=== PATIENT | female | born 2000 | race Caucasian/White ===

== ENCOUNTER 2023-09-19 08:13 | Outpatient (AMB) | payer OTHER, SELFPAY ==
--- NOTE | 2023-09-19 08:15 | AM.OFFWIN_ITS ---
Intake Vital Signs 09/19/23 08:21 Height 5 ft 5 in Weight 252 lb BMI 41.9 BP 118/60 Blood Pressure Location Rt brachial Position Sitting Respiration 13 Pulse 115 H Pulse Source Pulse Oximeter Pulse Oximetry (%) 96 Oxygen Delivery Method Room Air Intake Visit Reasons: ? sinus infection Intake Note: Patient reports she has had sinusitis x4 weeks. Tested at home for covid and result was negative. Patient reports she had conjuctivitis- cleared with OTC eye drops. Patient reports she uses Azelastine nasal spray (her moms supply) and it helped mildly. Patient Tobacco Use Status: Never used Tobacco Case Manager Required: No Accompanied by: Self / Same As Patient Allergies No Known Allergies [No Known Allergies*] Allergy (Unverified 09/19/23 09:00) Medication List - Last Reconciled 09/19/23 by Yanira Perez, DESIGN ENGINEERING SPECIALIST-BC clonazepam 0.25 mg PO BID PRN escitalopram oxalate 20 mg PO DAILY methylphenidate HCl (Ritalin) 20 mg PO BID norethindrone ac-eth estradiol 1.5-30 mg-mcg (Jo) 1 tab PO DAILY Do you need a note to return to daycare/school/sports/work: Yes HPI HPI Comments History of Present Illness Details Here today with c/o URI sx for 4 weeks. Went to [facility] 2 weeks but not tx with AB at that time. Supportive care only. Did tx pink eye at home with OTC remedy. Today, has lots of nasal congestion, pressure, drainage, + dental pain. Denies fever, chills. UTD on vaccines. Review of Systems Const All systems reviewed & are unremarkable except as noted in HPI and below Physical Exam Vital Signs: Last Vital Signs Pulse 115 H 09/19/23 08:21 Resp 13 09/19/23 08:21 BP 118/60 09/19/23 08:21 Pulse Ox 96 09/19/23 08:21 Oxygen Delivery Method Room Air 09/19/23 08:21 BMI result Body Mass Index 41.9 Const Other: awake, alert, NAD sclera/conjunctiva clear bilat TM intact, + effusions bilat Nares with mucopurulent discharge, turbinates pale and edematous, + frontal and maxillary sinus tenderness w/ palp bilat worse on L RRR P90 LS CTAB Assessment & Plan Assessment & Plan (1) Sinusitis, acute: Code(s): J01.90 - Acute sinusitis, unspecified Qualifiers: Sinusitis location: pansinusitis Recurrence: non-recurrent Qualified Code(s): J01.40 - Acute pansinusitis, unspecified Plan: . Medications: New albuterol sulfate 90 mcg/actuation 2 puffs inhalation Q4-6H 30 days PRN 8.5 grams 0RF shortness of breath or wheezing amoxicillin-pot clavulanate 875-125 mg 1 tab PO BID 7 days 14 tabs 0RF Patient Instructions: take ab as directed w/ food no nasal spray other than saline or flonase avoid decongestants edu on control and ab & reasons to RTO Coding Level of Care Code Est Pt Level 3 (81644) Diagnoses Acute non-recurrent pansinusitis J01.40 Sinusitis location: pansinusitis Recurrence: non-recurrent
[2023-09-19 08:21] VITALS: BP 118/60; PULSE 115; RESP 13; O2SAT 96; BMI 41.9
== END 2023-09-19 09:28 | disposition home or self-care (01) ==
PROVIDERS: Visit Provider Nurse Practitioner Family
DX: J01.40 Acute pansinusitis, unspecified (principal)
CPT/HCPCS: 99213

== ENCOUNTER 2023-11-02 10:44 | Outpatient (AMB) | payer OTHER, SELFPAY ==
[2023-11-02 10:47] VITALS: BP 114/68; PULSE 104; RESP 12; O2SAT 98; BMI 42.6
--- NOTE | 2023-11-02 10:47 | MHC.PC.OV ---
Vital Signs 11/02/23 10:47 Height 5 ft 5 in Weight 256 lb BMI 42.6 BP 114/68 Blood Pressure Location Lt brachial Position Sitting Respiration 12 Pulse 104 H Pulse Source Pulse Oximeter Pulse Oximetry (%) 98 Oxygen Delivery Method Room Air Intake Visit Reasons: est care Intake Note: Patient is here today to establish care and she would like to discuss her weight concern adn struggles. Plant Operator Control Room Operator Required: No Accompanied by: Self / Same As Patient Allergies No Known Allergies [No Known Allergies*] Allergy (Verified 11/02/23 11:14) Medication List - Last Reconciled 11/02/23 by Yanira Perez, [facility]- albuterol sulfate 90 mcg/actuation 2 puffs inhalation Q4-6H PRN 30 days buspirone 10 mg PO BID clonazepam 0.25 mg PO BID PRN escitalopram oxalate 20 mg PO DAILY methylphenidate HCl (Ritalin) 20 mg PO BID norethindrone-ethin estradiol 1-35 mg-mcg (Nortrel) 1 tab PO DAILY Tobacco use date assessed: 11/02/23 Dental Screening Dental Screen Date: 11/02/23 Did you have a dental visit in the last 12 months?: Yes Did you have a dental problem in the last 6 months where you did not have access to dental care?: No Was dental information given to patient?: Patient has dentist HPI HPI Comments History of Present Illness Details 23-year-old female with obesity, GERD, MDD, mild and intermittent asthma, ADD here today to establish care. No previous medical records available. Was active w/ [facility] until age 21. Will get records At [facility] Med - no records worth getting Specialists Psychiatry - Lauren Brandt HAND BOX FOLDER - Yanira Moreno [facility] Health maintenance Pap smear UTD 2022 vaccines UTD Dentist reports routine appointments Eyes no issues has routine eye exams Skin offers no complaints Social Currently going to school for her bachelor's in science. Wants to become a nurse practitioner. She is at [employer]. She drives and wears a seat belt. Family history Mom with adrenal insufficiency Sister with bipolar Here today for CPE Feeling pretty well. Trying to lose wt 6 months. On calorie deficit 1800cal/day. Working out 5x/week. Not seeing any results. Admits having to increase estrogen in OCP recently due to breakthrough bleeding Wonders if meds contribute. Although admits to wt struggles in her past. . Asked HAND BOX FOLDER about PCOS. Labs done and WNL per her reports. These are not available to me. She also reports a sudden onset of stretch kennedy on her abdomen as well as her arms that seem to appear ?overnight ?fairly recently. [facility] Medical History Depression Anxiety Asthma Surgical History No pertinent past surgical history Family History Mother Asthma Father Psychiatric disorder Substance use disorder Maternal Grandmother Diabetes High cholesterol Paternal Grandmother High cholesterol Maternal Grandfather High cholesterol Cardiovascular disease Paternal Grandfather High cholesterol Psychiatric disorder Substance use disorder Sister Psychiatric disorder Social History (Updated 11/02/23 @ 11:11 by July Melendez CMA) Household Members: Significant Other Housing: House Are you a primary career and transition teacher to a significant other at home: No Do you presently have visiting nurse or other home services: No 75 years or older and lives alone: No Alcohol intake: current Alcohol intake frequency: holidays/special occasions only Patient Tobacco Use Status: Never used Tobacco e-Cigarette/Vaping Use: Never Used service: No Current occupational status: employed Current occupation: [employer] Current occupational exposures/hazards: No Sexual orientation: Straight/Heterosexual Gender identity: Female Cognitive needs: No Hearing needs: No Vision needs: No Questionnaire PHQ-9 Over the last 2 weeks, how often have you been bothered by any of the following problems? 1. Little interest or pleasure in doing things: not at all 2. Feeling down, depressed, or hopeless: not at all 3. Trouble falling or staying asleep, or sleeping too much: several days 4. Feeling tired or having little energy: not at all 5. Poor appetite or overeating: not at all 6. Feeling bad about yourself - or that you are a failure or have let yourself or your family down: not at all 7. Trouble concentrating on things, such as reading the newspaper or watching television: not at all 8. Moving or speaking so slowly that other people could have noticed. Or the opposite - being so fidgety or restless that you have been moving around a lot more than usual: not at all 9. Thoughts that you would be better off or of hurting yourself in some way: not at all Total score: 1 Depression Screening Interpretation: Negative Depression Screening Done: Yes 68813 - PHQ-9 Billing: Yes Source: Developed by Drs. Chago Vicente, Mi Avalos, Awais Toledo and colleagues, with an educational magdi from [employer]. Thrive Questionnaire Date Thrive assessed: 11/02/23 I am a: Patient What is your living situation today?: I have a steady place to live Within the past 12 months, did the food you bought not last and you didn't have the money to get more?: Never true Within the past 12 months, did you worry whether your food would run out before you got money to buy more?: Never true Do you have trouble paying for medicines?: No Do you have trouble getting transportation to medical appointments?: No Do you have trouble paying your heating and electricity bill?: No Do you have trouble taking care of your child, family member or friend?: No Do you have trouble with day-to-day activities such as bathing, preparing meals, shopping, managing finances, etc.?: No Are you currently unemployed and looking for a job?: No Are you interested in more education?: No Please select the resources that you would like help with: None Currently or been in a relationship where the following occur: no concerns reported THRIVE Score: 0 AUDIT C Alcohol Use Questionnaire (AUDIT-C) 1. How often do you have a drink containing alcohol?: Never 3. How often do you have six or more drinks on one occasion?: Never Total Score: 0 WILMAR-7 AMB Questionnaire WILMAR-7 Date WILMAR - 7 assessed: 11/02/23 Feeling nervous, anxious, or on edge: 1 = Several days Not being able to stop or control worryin = Not at all Worrying too much about different things: 0 = Not at all Trouble relaxin = Not at all Being so restless that it is hard to sit still: 0 = Not at all Becoming easily annoyed or irritable: 0 = Not at all Feeling afraid as if something awful might happen: 0 = Not at all Total WILMAR-7 score (0-4 normal; 5-9 mild; 10-14 moderate; 15-21 severe): 1 Source: Developed by Drs. Chago Vicente, Mi Avalos, Awais Toledo and colleagues, with an educational magdi from [employer]. WILMAR-7 Assessment Billing WILMAR-7 Assessment Tool: WILMAR-7 Assessment 73484 Review of Systems Const Details: Constitutional: Denies fever. Skin: Denies rash. Eye: Denies eye pain. ENMT: Denies sore throat and nasal congestion. Respiratory: Denies shortness of breath and cough. Gastrointestinal: Denies nausea, vomiting or abdominal pain. Cardiovascular: Denies chest pain and syncope. Genitourinary: Denies dysuria. Musculoskeletal: Denies back pain and extremity pain. Neurologic: Denies headaches, confusion, and weakness. Psychiatric: Denies suicidal thoughts and substance abuse. Allergy/ Immunologic: Denies impaired immunity. Physical exam (Primary Care) Vital Signs: Last Vital Signs Pulse 104 H 11/02/23 10:47 Resp 12 11/02/23 10:47 BP 114/68 11/02/23 10:47 Pulse Ox 98 11/02/23 10:47 Oxygen Delivery Method Room Air 11/02/23 10:47 BMI result Body Mass Index 42.6 BMI Assessment/Plan discussion: High BMI High, discussed plan: lifestyle Tobacco/Smoking Status: Tobacco use Status Tobacco use date assessed 11/02/23 11/02/23 10:56 Patient Tobacco Use Status Never used Tobacco 11/02/23 11:11 e-Cigarette/Vaping Use Never Used 11/02/23 11:11 PHQ-9: PHQ-9 Score PHQ-9: Total score 1 11/02/23 11:06 Depression Screening Interpretation: Negative Thrive Assessment: Date of Thrive Assessment Date Thrive assessed 11/02/23 11/02/23 11:06 Currently or been in a relationship where the following occur: no concerns reported Const Other: General: Well developed, well nourished, in no acute distress. Appears stated age. Bowles face, obese Head: Normocephalic, atraumatic. Eyes: Pupils are equal, round and reactive to light and accommodation. Conjunctivae are clear. Vision grossly normal. Ears: TMs clear AU, EACS WNL Nose: Patent, without discharge. Mouth: There are no ulcers or lesions noted. No inflammation, no post nasal drip, no plaques nor exudates. Neck: Supple, no adenopathy or thyromegaly. Lungs: Clear to auscultation bilaterally. No rales, rhonchi or wheeze noted. Good air flow in all jarvis. Heart: Regular rate and rhythm. No murmurs, click, rubs or gallops are noted. Abdomen: Bowel sounds present in all quadrants. The abdomen is soft, nontender, with no masses or organomegaly noted. No hernias are noted. Musculoskeletal: Joints are nontender, without swelling, redness, or effusions. Range of motion is observed to be normal. Pulses: Peripheral pulses are equal and palpable bilaterally. Extremities: No clubbing, cyanosis nor edema is noted. Neurologic: Gait and station normal. Cranial Nerves 2-12 intact. Motor strength grossly symmetrical and intact. No sensory loss. Balance normal. Skin: No rashes, ulcers, or lesions noted. Turgor is good. Skin color is good. Hair and nails are without abnormalities. Wide purple striae of abdominal wall and upper arms Psych: Normal eye contact, affect and mood appropriate, and normal interactions. Patient is alert and appropriate to context. Assessment and Plan Assessment & Plan (1) Morbid obesity with BMI of 40.0-44.9, adult: Comment: Difficulty losing weight despite efforts. Given the exam findings today which is concerning for cushingoid syndrome the decision was made to refer to endocrinology for further evaluation and treatment. I have encouraged her to continue her efforts at eating a clean diet and exercising 5 times per week. Code(s): E66.01 - Morbid (severe) obesity due to excess calories; Z68.41 - Body mass index [BMI] 40.0-44.9, adult (2) Mild intermittent asthma in adult without complication: Comment: Controlled on p.r.n. Marry. Up-to-date on vaccinations Code(s): J45.20 - Mild intermittent asthma, uncomplicated (3) MDD (major depressive disorder), recurrent episode: Comment: Active with outside psychiatry Lauren Bustamante. Managed on buspirone escitalopram and clonazepam. Code(s): F33.9 - Major depressive disorder, recurrent, unspecified Qualifiers: Major depression episode severity: mild Qualified Code(s): F33.0 - Major depressive disorder, recurrent, mild (4) WILMAR (generalized anxiety disorder): Comment: Active with outside psychiatry Lauren [place]. Managed on buspirone escitalopram and clonazepam. Code(s): F41.1 - Generalized anxiety disorder (5) ADD (attention deficit disorder): Comment: On Ritalin as managed by her outside prescriber Lauren Rikki Code(s): F98.8 - Other specified behavioral and emotional disorders with onset usually occurring in childhood and adolescence Qualifiers: Attention deficit-hyperactivity disorder type: predominantly inattentive Hyperactivity presence: present Qualified Code(s): F90.0 - Attention-deficit hyperactivity disorder, predominantly inattentive type (6) Iatrogenic cushingoid features: Comment: Noted on physical exam today. Associated with symptoms of menstrual irregularities, obesity, inability to lose weight and a bowles face. She reports that she has already had a PCOS workup done in the past by dental assisting instructor. I will request a copy of these for review. I have placed a referral to endocrinology for further evaluation and treatment. And I have ordered some tests to start. Code(s): E24.2 - Drug-induced [place]'s syndrome (7) Physical exam, annual: Code(s): Z00.00 - Encounter for general adult medical examination without abnormal findings Plan This note is constructed using voice recognition software. While every effort has been made to ensure accuracy in gunstock spray unit adjuster, still errors may have been included Sometimes, these errors may affect the content or meaning of the given sentence . Total time spent caring for the patient today was 75 minutes. This includes time spent before the visit reviewing the chart, time spent during the visit, and time spent after the visit on documentation Unfortunately the findings of the abdominal striae and the conversation related to the cushings provoked anxiety in the patient. She began crying. Lots of time needed to be spent with her explaining the process the differentials and reassuring her. I have asked for her to come back again in a couple of weeks to review her workup to date and check in Orders: Orders Cortisol, Free 24Hr Urine Today E24.2 - Drug-induced [place]'s syndrome, E66.01 - Morbid (severe) obesity due to excess calories, Z68.41 - Body mass index [BMI] 40.0-44.9, adult Hemoglobin A1c Today E24.2 - Drug-induced Lynette's syndrome, E66.01 - Morbid (severe) obesity due to excess calories, Z68.41 - Body mass index [BMI] 40.0-44.9, adult Saliva Cortisol Today E24.2 - Drug-induced Lynette's syndrome, E66.01 - Morbid (severe) obesity due to excess calories, Z68.41 - Body mass index [BMI] 40.0-44.9, adult DHEA Sulfate Today E24.2 - Drug-induced [place]'s syndrome, E66.01 - Morbid (severe) obesity due to excess calories, Z68.41 - Body mass index [BMI] 40.0-44.9, adult Referrals Endocrinology Referral E24.2 - Drug-induced Lynette's syndrome, E66.01 - Morbid (severe) obesity due to excess calories, Z68.41 - Body mass index [BMI] 40.0-44.9, adult Metabolic Clinic Referral E66.01 - Morbid (severe) obesity due to excess calories, Z68.41 - Body mass index [BMI] 40.0-44.9, adult Patient Instructions: Health screenings for women ages 18 to 39 You should visit your health care provider from time to time, even if you are healthy. The purpose of these visits is to: Screen for medical issues Assess your risk for future medical problems Encourage a healthy lifestyle Update vaccinations and other preventive care services Help you get to know your provider in case of an illness Information Even if you feel fine, you should still see your provider for regular checkups. These visits can help you avoid problems in the future. For example, the only way to find out if you have high blood pressure is to have it checked regularly. High blood sugar and high cholesterol levels also may not have any symptoms in the early stages. A simple blood test can check for these conditions. There are specific times when you should see your provider or receive specific health screenings. The [place] Preventive Services Task Force publishes a list of recommended screenings. Below are screening guidelines for women ages 18 to 39. BLOOD PRESSURE SCREENING Your blood pressure should be checked at least once every 3 to 5 years if: Your blood pressure is in the normal range (top number less than 120 mm Hg and bottom number less than 80 mm Hg) You don't have risk factors for high blood pressure Ask your provider if you need your blood pressure checked more often if: The top number is 120 to 129 mm Hg or the bottom number is 70 to 79 mm Hg You have diabetes, heart disease, kidney problems, are overweight, or have certain other health conditions You have a first-degree relative with high blood pressure You are Black You had high blood pressure during a If the top number is 130 mm Hg or greater or the bottom number is 80 mm Hg or greater, this is considered stage 1 hypertension. Schedule an appointment with your provider to learn how you can reduce your blood pressure. Watch for blood pressure screenings in your area. Ask your provider if you can stop in to have your blood pressure checked. BREAST CANCER SCREENING Experts do not agree about the benefits of breast self-exams in finding breast cancer or saving lives. Talk to your provider about what is best for you. A screening mammogram is not recommended for most women under age 40. Your provider may discuss and recommend mammograms, MRI scans, or ultrasounds if you have an increased risk for breast cancer, such as: A mother or sister who had breast cancer at a young age (most often starting screening earlier than the age the close relative was diagnosed) You carry a high-risk genetic marker CERVICAL CANCER SCREENING Cervical cancer screening should start at age 21 years unless your provider advises otherwise. After the first test: Women ages 21 through 29 should have a Pap test every 3 years. Exoprts do not agree on whether HPV testing is recommended for this age group. Women ages 30 through 65 should be screened with either a Pap test every 3 years or the HPV test every 5 years or both tests every 5 years (called cotesting ). Women who have been treated for precancer (cervical dysplasia) should continue to have Pap tests for 20 years after treatment or until age 65, whichever is longer. If you have had your uterus and cervix removed (total hysterectomy), and you have not been diagnosed with cervical cancer or precancer (high grade cervical neoplasia), you do not need cervical cancer screening. CHOLESTEROL SCREENING Cholesterol screening should begin at: Age 45 for women with no known risk factors for coronary heart disease Age 20 for women with known risk factors for coronary heart disease Repeat cholesterol screening should take place: Every 5 years for women with normal cholesterol levels More often if changes occur in lifestyle (including weight gain and diet) More often if you have diabetes, heart disease, kidney problems, or certain other conditions DIABETES SCREENING You should be screened for diabetes starting at age 35 and then repeated every 3 years if you have no risk factors for diabetes. Screening may need to start earlier and be repeated more often if you have other risk factors for diabetes, such as: You have a first degree relative with diabetes. You are overweight or have obesity. You have high blood pressure, prediabetes, or a history of heart disease. Screening for diabetes should be done if you are planning to become and you are overweight and have other risk factors such as high blood pressure. DENTAL EXAM Go to the dentist once or twice every year for an exam and cleaning. Your dentist will evaluate if you need more frequent visits. EYE EXAM Have an eye exam every 5 to 10 years before age 40. If you have vision problems, have an eye exam every 2 years or more often if recommended by your provider. You should have an eye exam that includes an examination of your retina (back of your eye) at least every year if you have diabetes. IMMUNIZATIONS Commonly needed vaccines include: Flu shot: get one every year. COVID-19 vaccine: ask your provider what is best for you. Tetanus-diphtheria and acellular pertussis (Tdap) vaccine: have one at or after age 19 as one of your tetanus-diphtheria vaccines if you did not receive it as an adolescent. Tetanus-diphtheria: have a booster (or Tdap) every 10 years. Varicella vaccine: receive 2 doses if you never had chickenpox or the varicella vaccine. Hepatitis B vaccine: receive 2, 3, or 4 doses, depending on your exact circumstances. Measles, mumps, and rubella (MMR) vaccine: receive 1 to 2 doses if you are not already immune to MMR. Your provider can tell you if you are immune. Ask your provider about the human papillomavirus (HPV) vaccine if: You have not received the HPV vaccine in the past You have not completed the full vaccine series (you should catch up on this shot) Ask your provider if you should receive other immunizations if you have certain health problems that increase your risk for some diseases such as pneumonia. INFECTIOUS DISEASE SCREENING Women who are sexually active should be screened for chlamydia and gonorrhea up until age 25. Women 25 years and older should be screened for chlamydia and gonorrhea if at high risk. Screening for hepatitis C: All adults ages 18 to 79 should get a one-time test for hepatitis C. people should be screened at every . Screening for human immunodeficiency virus (HIV): All people ages 15 to 65 should get a one-time test for HIV. Depending on your lifestyle and medical history, you may also need to be screened for infections such as syphilis and HIV, as well as other infections. PHYSICAL EXAM All adults should visit their provider from time to time, even if they are healthy. The purpose of these visits is to: Screen for disease Assess your risk of future medical problems Encourage a healthy lifestyle Update your vaccinations and other preventive care services Maintain a relationship with a provider in case of an illness Your height, weight, and BMI should be checked at every exam. During your exam, your provider may ask you about: Depression and anxiety Diet and exercise Alcohol and tobacco use Safety issues, such as using seat belts, smoke detectors, and intimate partner violence Your medicines and risk for interactions SKIN SELF-EXAM Your provider may check your skin for signs of skin cancer, especially if you're at high risk, such as if you: Have had skin cancer before Have close relatives with skin cancer Have a weakened immune system OTHER SCREENING Talk with your provider about colon cancer screening if you have a strong family history of colon cancer or polyps, or if you have had inflammatory bowel disease or polyps yourself. Routine bone density screening of women under 40 is not recommended. Coding Level of Care Code Est Pt Level 3 (95574) Est Pt Prev Care 18-39y(32337) Diagnoses Morbid obesity with BMI of 40.0-44.9, adult E66.01; Z68.41 Mild intermittent asthma in adult without complication J45.20 Mild episode of recurrent major depressive disorder F33.0 Major depression episode severity: mild WILMAR (generalized anxiety disorder) F41.1 Attention deficit hyperactivity disorder (ADHD), predominantly inattentive type F90.0 Attention deficit-hyperactivity disorder type: predominantly inattentive Hyperactivity presence: present Iatrogenic cushingoid features E24.2 Physical exam, annual Z00.00 Additional Codes WILMAR-7 Assessment Billing - WILMAR-7 Assessment Tool: WILMAR-7 Assessment [id number] ([id number])
== END 2023-11-02 12:20 | disposition home or self-care (01) ==
PROVIDERS: PCP Nurse Practitioner Family; Visit Provider Nurse Practitioner Family
DX: Z00.00 Encounter for general adult medical examination without abnormal findings (principal); E66.01 Morbid (severe) obesity due to excess calories; Z68.41 Body mass index [BMI] 40.0-44.9, adult; E24.2 Drug-induced Cushing's syndrome; F33.0 Major depressive disorder, recurrent, mild; J45.20 Mild intermittent asthma, uncomplicated; F41.1 Generalized anxiety disorder; F90.0 Attention-deficit hyperactivity disorder, predominantly inattentive type
CPT/HCPCS: 99213; 99395

== ENCOUNTER 2023-11-02 12:05 | Outpatient (REF) | payer OTHER, SELFPAY ==
[2023-11-02 14:43] LABS: Estimated Average Glucose 94 mg/dL; Hemoglobin A1c % 4.9 % (<6.0)
[2023-11-03 09:08] LABS: DHEA Sulfate 202 mcg/dL (44-286)
== END 2023-11-02 12:06 | disposition home or self-care (01) ==
LOC: HO.WFDLDS 12:05
PROVIDERS: Visit Provider Nurse Practitioner Family
DX: E24.2 Drug-induced Cushing's syndrome (principal); E66.01 Morbid (severe) obesity due to excess calories; Z68.41 Body mass index [BMI] 40.0-44.9, adult
CPT/HCPCS: 36415; 82627; 83036

== ENCOUNTER 2023-11-05 11:55 | Outpatient (REF) | payer OTHER, SELFPAY ==
[2023-11-18 21:58] LABS: Creatinine, 24 Hr Urine 1.39 g/24 h (0.50-2.15); Total Volume, 24 Hr Urine 1525
== END 2023-11-05 11:56 | disposition home or self-care (01) ==
LOC: HO.LNP 11:55
PROVIDERS: Visit Provider Nurse Practitioner Family
DX: E24.2 Drug-induced Cushing's syndrome (principal); E66.01 Morbid (severe) obesity due to excess calories; Z68.41 Body mass index [BMI] 40.0-44.9, adult
CPT/HCPCS: 82530

== ENCOUNTER 2023-11-05 18:11 | Outpatient (REF) | payer OTHER, SELFPAY ==
[2023-11-16 22:54] LABS: Saliva Cortisol 0.07 mcg/dL
== END 2023-11-05 18:12 | disposition home or self-care (01) ==
LOC: HO.LNP 18:11
PROVIDERS: Visit Provider Nurse Practitioner Family
DX: E24.2 Drug-induced Cushing's syndrome (principal); E66.01 Morbid (severe) obesity due to excess calories; Z68.41 Body mass index [BMI] 40.0-44.9, adult
CPT/HCPCS: 82530

== ENCOUNTER 2024-04-03 10:18 | Outpatient (AMB) | payer OTHER, SELFPAY ==
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
[2024-04-03 10:34] VITALS: BP 124/68; PULSE 104; RESP 16; TEMP 36.6; O2SAT 98; BMI 41.1
== END 2024-04-03 11:08 | disposition home or self-care (01) ==
PROVIDERS: PCP Nurse Practitioner Family; Visit Provider Nurse Practitioner Family
DX: S13.4XXA Sprain of ligaments of cervical spine, initial encounter (principal); S29.012A Strain of muscle and tendon of back wall of thorax, initial encounter; S06.0X0A Concussion without loss of consciousness, initial encounter; V49.50XA Passenger injured in collision with unspecified motor vehicles in traffic accident, initial encounter
CPT/HCPCS: 99215

== ENCOUNTER 2024-05-07 15:32 | Outpatient (AMB) | payer OTHER, SELFPAY ==
--- NOTE | 2024-05-07 15:33 | A.OFFPC_ITS ---
Intake Visit Reasons: Covid positive/ Asthma Intake Note: Patient is here to follow up on Covid positive 05/06/24, Flu like symptoms, headache, nausea, shortness of breath, chills, extreme fatigue, congestion. OTC not helping. Health Services Rn Required: No Seam Sewer: Not Required per policy Accompanied by: Self / Same As Patient Allergies No Known Allergies [No Known Allergies*] Allergy (Verified 05/07/24 15:47) Medication List - Last Reconciled 05/07/24 by Yanira Perez, [facility] albuterol sulfate 2.5 mg (3 mL) inhalation Q4-6H PRN albuterol sulfate 90 mcg/actuation 2 puffs inhalation Q4-6H PRN 30 days buspirone 10 mg PO BID cetirizine (All Day Allergy (cetirizine)) 10 mg PO DAILY clonazepam 0.25 mg PO BID PRN compressor, for nebulizer As directed escitalopram oxalate 20 mg PO DAILY methylphenidate HCl (Ritalin) 20 mg PO BID nebulizer accessories (Adult Aerosol Mask) As directed Tobacco use date assessed: 04/03/24 Dental Screening Dental Screen Date: 04/03/24 HPI HPI Comments History of Present Illness Details 24-year-old female with obesity, GERD, M DD, mild and intermittent asthma, ADD Telehealth visit today for COVID. Attempted to call her at 1538. No answer. LMOM that I would try her back. Second call at 1545 Tested positive yesterday, Sx started about 3 days ago Sx include headache, extreme fatigue, congestion, chills, feels flu like sx. did feel SOB but using neb with + relief. Mom + on Sunday. Denies cough, fever, wheezing. Using mucinex for congestion. No APAP or NSAIDs. wonders about taking paxlovid. She is able to talk in complete sentences, no wheezing, shortness to breath noted. Unable to take vital signs of the time of the visit. Discussed with her the use of Paxlovid along with Co administration of her medications as below. Coadministration has not been studied. Buspirone is metabolized by CY. Nirmatrelvir/ritonavir strongly inhibits CY. Coadministration with itraconazole (200 mg for 4 days), another strong CY inhibitor, increased buspirone AUC by 19-fold and requires a significant reduction in buspirone dose (i.e., 2.5 mg once daily). A similar interaction is expected with nirmatrelvir/ritonavir. Pause buspirone and restart 3 days after completing nirmatrelvir/ritonavir treatment given that CY inhibition takes several days to resolve. Alternatively, use buspirone at a low dose such as 2.5mg once daily. Coadministration is contraindicated. Increased plasma concentrations of clonazepam can increase risk of extreme sedation and respiratory depression. Ritonavir coadministration is likely to result in increased plasma concentrations of clonazepam. Paxlovid Summary of Product Characteristics, [employer], June 2022. Coadministration may increase clonazepam concentrations. A dose decrease may be needed for clonazepam when co-administered with Paxlovid and clinical monitoring is recommended. After discussion she reports that she is having an uptic in her anxiety and does not think that she can be without these medications. Her last dose of clonazepam was today. [place] decision-making to not prescribe Paxlovid at this time. Rather continue supportive care, liberal use of albuterol nebulizer, [id number] NSAIDs or acetaminophen for body aches and fever along with Mucinex to help with congestion. Advised that if she does develop worsening symptoms, wheezing that she should put a mask on and come to the office for an evaluation. Otherwise she should recover without incident. Recommend to follow the current CDC guidelines. This note is constructed using voice recognition software. While every effort has been made to ensure accuracy in retrimmer, still errors may have been included Sometimes, these errors may affect the content or meaning of the given sentence . [facility] Medical History Depression Anxiety Asthma Surgical History No pertinent past surgical history Family History Mother Asthma Father Psychiatric disorder Substance use disorder Maternal Grandmother Diabetes High cholesterol Paternal Grandmother High cholesterol Maternal Grandfather High cholesterol Cardiovascular disease Paternal Grandfather High cholesterol Psychiatric disorder Substance use disorder Sister Psychiatric disorder Social History (Updated 11/02/23 @ 11:11 by July Melendez CMA) Household Members: Significant Other Housing: House Are you a primary direct care counselor to a significant other at home: No Do you presently have visiting nurse or other home services: No 75 years or older and lives alone: No Alcohol intake: current Alcohol intake frequency: holidays/special occasions only Patient Tobacco Use Status: Never used Tobacco e-Cigarette/Vaping Use: Never Used Second Hand Smoke Exposure: No service: No Current occupational status: employed Current occupation: [employer] Current occupational exposures/hazards: No Sexual orientation: Straight/Heterosexual Gender identity: Female Cognitive needs: No Hearing needs: No Vision needs: No Questionnaire Thrive Questionnaire Date Thrive assessed: 11/02/23 WILMAR-7 AMB Questionnaire WILMAR-7 Date WILMAR - 7 assessed: 11/02/23 Source: Developed by Drs. Chago Vicente, Mi Avalos, Awais Toledo and colleagues, with an educational magdi from [employer]. Physical exam (Primary Care) Tobacco/Smoking Status: Tobacco use Status Tobacco use date assessed 04/03/24 04/03/24 10:39 Patient Tobacco Use Status Never used Tobacco 04/03/24 10:39 e-Cigarette/Vaping Use Never Used 04/03/24 10:39 Thrive Assessment: Date of Thrive Assessment Date Thrive assessed 11/02/23 04/03/24 10:39 Telehealth Telehealth Telehealth Platform: Telephone Location of provider rendering services: practice address Location of patient: address on file Patient Identification confirmed using: Name, : Yes Telehealth method: voice only Patient verbally consented to treatment: Yes Patient verbally consented to billing insurance company: Yes Patient informed of any privacy concerns related to visit: Yes Minutes spent on Phone/Video with Pt.: 12 Assessment and Plan Assessment & Plan (1) COVID-19: Code(s): U07.1 - COVID-19 (2) Mild intermittent asthma in adult without complication: Comment: Controlled on p.r.n. Marry. Up-to-date on vaccinations Code(s): J45.20 - Mild intermittent asthma, uncomplicated Coding Level of Care Code Tele Est Pt Level 2 (40726) Diagnoses COVID-19 U07.1 Mild intermittent asthma in adult without complication J45.20
== END 2024-05-07 15:55 | disposition home or self-care (01) ==
LOC: HO.HMGFM 15:32
PROVIDERS: PCP Nurse Practitioner Family; Visit Provider Nurse Practitioner Family
DX: U07.1 COVID-19 (principal); J45.20 Mild intermittent asthma, uncomplicated
CPT/HCPCS: 99212

== ENCOUNTER 2024-09-24 13:34 | Outpatient (AMB) | payer OTHER, SELFPAY ==
--- NOTE | 2024-09-24 13:36 | MHC.PC.OV ---
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 Intake Note: Patient is here for a referral to bulb grader Pastry Wrapper Required: No Allergies No Known Allergies [No Known Allergies*] Allergy (Verified 09/24/24 13:59) Medication List - Last Reconciled 09/24/24 by Yanira Perez, [facility]- albuterol sulfate 2.5 mg (3 mL) inhalation Q4-6H PRN albuterol sulfate 90 mcg/actuation 2 puffs inhalation Q4-6H PRN 30 days buspirone 15 mg PO DAILY cetirizine (All Day Allergy (cetirizine)) 10 mg PO DAILY clonazepam 0.25 mg PO BID PRN clonazepam 1 mg PO BID PRN compressor, for nebulizer As directed escitalopram oxalate 20 mg PO DAILY meloxicam 15 mg PO DAILY methylphenidate HCl (Ritalin) 20 mg PO BID nebulizer accessories (Adult Aerosol Mask) As directed norethindrone-ethin estradiol 0.5-35 mg-mcg (Necon) 1 tab PO DAILY propranolol 20 mg PO BID Tobacco use date assessed: 04/03/24 Dental Screening Dental Screen Date: 04/03/24 HPI HPI Comments History of Present Illness Details 24-year-old female with obesity, GERD, MDD, mild and intermittent asthma, ADD Specialists Psychiatry - Lauren Brandt DRY GOODS INSPECTOR - Yanira Moreno [facility] Health maintenance Pap smear UTD 2022 vaccines UTD Dentist reports routine appointments Eyes no issues has routine eye exams Skin offers no complaints Social Currently going to school for her bachelor's in science. Wants to become a nurse practitioner. She is at [employer]. She drives and wears a seat belt. Family history Mom with adrenal insufficiency, MAST cell activation syndrome Sister with bipolar The patient is a 24-year-old female presenting with increased frequency and severity of syncopal episodes associated with Postural Orthostatic Tachycardia Syndrome (POTS). These episodes have recently worsened, with a notable incident involving sudden syncope without warning signs, occurring after vomiting, which is atypical for the patient. The event happened when the patient woke up feeling the need to use the bathroom and subsequently vomited, leading to a brief loss of consciousness. Previously, she could anticipate syncopal episodes due to certain precipitating signs such as tunnel vision. The patient has a long-standing history of dysautonomia and was previously managed at the [facility], where she was seen by Dr. Bal and Dr. Schulz. Her condition was stable and medication-free until recently. The current episodes were notably severe after a heavier menstrual cycle, another known trigger. The vomiting episode raises the question of vagal stimulation leading to syncope. Additionally, the patient reports frequent hives and other symptoms consistent with a familial history of Mast Cell Activation Syndrome. She is no longer under the care of a pediatric anesthesiologist and has not yet seen an adult bulb grader. Physical Exam General: Awake, alert. No apparent distress accompanied by Mom Eyes: Sclera and conjunctiva clear bilaterally, PERRLA Cardiovascular: Regular rate and rhythm Respiratory: Lungs sound clear bilat Neuro: Neurovasc intact Consult reviewed: Dr Schulz -Jina cards Plan - Consider referral to a specialized clinic for autonomic disorders at [facility] or [facility], depending on insurance coverage. 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 - Referral to an adult bulb grader at the [facility] for management of POTS and syncope. - Referral to an demo specialist, specifically Dr. Martinez , to evaluate symptoms suggestive of Mast Cell Activation Syndrome. - Monitor for signs of aspiration following vomiting episodes, including productive cough and fever. Discussion Notes During the discussion, I explained the nature of syncopal episodes with a clear distinction between those related to dysautonomia and those potentially induced by vagal response due to vomiting. I informed the patient about the potential need for specialized care at institutions like [facility], acknowledging the possibility of extended wait times and insurance issues. We agreed on the increased dosage of cetirizine to manage hives and addressed concerns about her syncope management by seeking local cardiology evaluation. The significance of proper referrals was emphasized, considering her complex condition involving dysautonomia and potential Mast Cell Activation Syndrome. I also discussed the risks of aspiration and advised on vigilant monitoring for concerning symptoms post-vomiting. Additionally, I encouraged self-advocacy and ensured she was aware of steps to take if referral challenges arose due to insurance constraints. Patient was informed and verbally consented to the use of an ambient scribe for clinic note documentation during this visit. Patient Instructions - Follow the referrals to the selected specialists as discussed. Call your insurance provider to confirm network options if needed. - Take cetirizine as directed to manage hive symptoms. - Continue to monitor for signs of aspiration, such as fever and a productive cough, especially following vomiting episodes. - Prepare for potential extended waiting periods for specialist appointments. - Schedule an annual wellness exam after November 02 to ensure coverage by insurance. - Keep a record of any further syncopal episodes, including any new symptoms or triggers, to discuss at your follow-up visits. Total time spent caring for the patient today was 40 minutes. This includes time spent before the visit reviewing the chart, time spent during the visit, and time spent after the visit on documentation REPLACED BY [facility] Medical History Depression Anxiety Asthma Surgical History No pertinent past surgical history Family History Mother Asthma Father Psychiatric disorder Substance use disorder Maternal Grandmother Diabetes High cholesterol Paternal Grandmother High cholesterol Maternal Grandfather High cholesterol Cardiovascular disease Paternal Grandfather High cholesterol Psychiatric disorder Substance use disorder Sister Psychiatric disorder Social History (Updated 11/02/23 @ 11:11 by July Melendez CMA) Household Members: Significant Other Housing: House Are you a primary day care teacher to a significant other at home: No Do you presently have visiting nurse or other home services: No 75 years or older and lives alone: No Alcohol intake: current Alcohol intake frequency: holidays/special occasions only Patient Tobacco Use Status: Never used Tobacco e-Cigarette/Vaping Use: Never Used Second Hand Smoke Exposure: No service: No Current occupational status: employed Current occupation: [employer] Current occupational exposures/hazards: No Sexual orientation: Straight/Heterosexual Gender identity: Female Cognitive needs: No Hearing needs: No Vision needs: No Questionnaire PHQ-9 Over the last 2 weeks, how often have you been bothered by any of the following problems? 1. Little interest or pleasure in doing things: not at all 2. Feeling down, depressed, or hopeless: not at all 3. Trouble falling or staying asleep, or sleeping too much: not at all 4. Feeling tired or having little energy: several days 5. Poor appetite or overeating: not at all 6. Feeling bad about yourself - or that you are a failure or have let yourself or your family down: not at all 7. Trouble concentrating on things, such as reading the newspaper or watching television: not at all 8. Moving or speaking so slowly that other people could have noticed. Or the opposite - being so fidgety or restless that you have been moving around a lot more than usual: not at all 9. Thoughts that you would be better off or of hurting yourself in some way: not at all Total score: 1 Depression Screening Interpretation: Negative Depression Screening Done: Yes 21159 - PHQ-9 Billing: Yes Source: Developed by Drs. Chago Vicente, Mi Avalos, Awais Toledo and colleagues, with an educational magdi from [employer]. Thrive Questionnaire Date Thrive assessed: 09/24/24 I am a: Patient What is your living situation today?: I have a steady place to live Within the past 12 months, did the food you bought not last and you didn't have the money to get more?: Never true Within the past 12 months, did you worry whether your food would run out before you got money to buy more?: Never true Do you have trouble paying for medicines?: No Do you have trouble getting transportation to medical appointments?: No Do you have trouble paying your heating and electricity bill?: No Do you have trouble taking care of your child, family member or friend?: No Do you have trouble with day-to-day activities such as bathing, preparing meals, shopping, managing finances, etc.?: No Are you currently unemployed and looking for a job?: No Are you interested in more education?: No Please select the resources that you would like help with: None Currently or been in a relationship where the following occur: No concerns reported THRIVE Score: 0 AUDIT C Alcohol Use Questionnaire (AUDIT-C) 1. How often do you have a drink containing alcohol?: Monthly or less 2. How many drinks containing alcohol do you have on a typical day when you are drinking?: 1 or 2 3. How often do you have six or more drinks on one occasion?: Never Total Score: 1 Score Reviewed/Action Taken: Yes WILMAR-7 AMB Questionnaire WILMAR-7 Date WILMAR - 7 assessed: 09/24/24 Feeling nervous, anxious, or on edge: 2 = More than half the days Not being able to stop or control worryin = Several days Worrying too much about different things: 1 = Several days Trouble relaxin = Several days Being so restless that it is hard to sit still: 0 = Not at all Becoming easily annoyed or irritable: 0 = Not at all Feeling afraid as if something awful might happen: 0 = Not at all Total WILMAR-7 score (0-4 normal; 5-9 mild; 10-14 moderate; 15-21 severe): 5 Source: Developed by Drs. Chago Vicente, Mi Avalos, Awais Toledo and colleagues, with an educational magdi from [employer]. WILMAR-7 Assessment Billing WILMAR-7 Assessment Tool: WILMAR-7 Assessment 02655 Physical exam (Primary Care) Vital Signs: Last Vital Signs Pulse 88 09/24/24 13:41 Resp 12 09/24/24 13:41 BP 118/68 09/24/24 13:41 Pulse Ox 98 09/24/24 13:41 Oxygen Delivery Method Room Air 09/24/24 13:41 BMI result Body Mass Index 40.3 BMI Assessment/Plan discussion: High BMI High, discussed plan: lifestyle Tobacco/Smoking Status: Tobacco use Status Tobacco use date assessed 04/03/24 09/24/24 13:40 Patient Tobacco Use Status Never used Tobacco 09/24/24 13:40 e-Cigarette/Vaping Use Never Used 09/24/24 13:40 PHQ-9: PHQ-9 Score PHQ-9: Total score 1 09/24/24 13:40 Depression Screening Interpretation: Negative Thrive Assessment: Date of Thrive Assessment Date Thrive assessed 09/24/24 09/24/24 13:40 Currently or been in a relationship where the following occur: No concerns reported Coding Level of Care Code Est Pt Level 5 (76219) Complex EM visit Add On G2211 Diagnoses Dysautonomia G90.1 Hives L50.9 Morbid obesity with BMI of 40.0-44.9, adult E66.01; Z68.41 Additional Codes WILMAR-7 Assessment Billing - WILMAR-7 Assessment Tool: WILMAR-7 Assessment 30433 ([id number]) PHQ-9 - 39269 - PHQ-9 Billing: Yes ([id number]) Assessment & Plan Assessment & Plan (1) Dysautonomia: Comment: POTS dx in childhood by Dr Bal/Zeus in [place] Code(s): G90.1 - Familial dysautonomia [Aristeo-Day] Category: Medical (2) Hives: Comment: family hx of mast cell activation - Mom Code(s): L50.9 - Urticaria, unspecified Category: Medical (3) Morbid obesity with BMI of 40.0-44.9, adult: Comment: negative endo workup I have encouraged her to continue her efforts at eating a clean diet and exercising 5 times per week. Code(s): E66.01 - Morbid (severe) obesity due to excess calories; Z68.41 - Body mass index [BMI] 40.0-44.9, adult Category: Medical Plan . Orders: Referrals Allergy & Immunology Referral L50.9 - Urticaria, unspecified Cardiology Referral G90.1 - Familial dysautonomia [Aristeo-Day] Cardiology Referral G90.1 - Familial dysautonomia [Aristeo-Day]
[2024-09-24 13:41] VITALS: BP 118/68; PULSE 88; RESP 12; O2SAT 98; BMI 40.3
== END 2024-09-24 14:14 | disposition home or self-care (01) ==
PROVIDERS: PCP Nurse Practitioner Family; Visit Provider Nurse Practitioner Family
DX: G90.1 Familial dysautonomia [Riley-Day] (principal); L50.9 Urticaria, unspecified; E66.01 Morbid (severe) obesity due to excess calories; Z68.41 Body mass index [BMI] 40.0-44.9, adult

== ENCOUNTER → 2024-09-24 13:34 | Outpatient (BNVA) | payer OTHER, SELFPAY | PROVIDERS: PCP Nurse Practitioner Family; Visit Provider Nurse Practitioner Family | DX: G90.A Postural orthostatic tachycardia syndrome [POTS] (principal); G90.1 Familial dysautonomia [Riley-Day]; L50.9 Urticaria, unspecified; E66.01 Morbid (severe) obesity due to excess calories; Z68.41 Body mass index [BMI] 40.0-44.9, adult | CPT/HCPCS: 96127; 99212 ==

== ENCOUNTER 2024-10-16 09:17 | Outpatient (AMB) | payer OTHER, SELFPAY ==
--- OUTSIDE RECORDS SUMMARY | 2024-10-16 09:21 | XMS_ITS | Encounter Summary ---
Author Organization [facility] Address [address] [place] [address] Phone Care Team Providers Care Explosives Detonator Name Role Phone Malika March MD Primary Care Provider [phone] Encounter Details Date Type Department Care Team ([facility] Contact Info) Description 12/11/2016 Documentation [facility] [place] [address] [place], [place] [id number] Family Medicine, Physician [address] [place], [place] [id number] Social History Tobacco Use Types Packs/Day Years Used Date Smoking Tobacco: Never Comments:Never smoker Comments Unknown Sex and Gender Information Value Date Recorded Sex Assigned at Not on file Legal Sex Female 5:23 PM EDT Gender Identity Not on file Sexual Orientation Not on file documented as of this encounter Plan of Treatment Not on file documented as of this encounter Visit Diagnoses Not on filedocumented in this encounter Care Teams Explosives Detonator Relationship Specialty Start Date End Date Malika March MD [address] [place] [address] PCP - General Pediatrics 09/08/20 04/17/23 documented as of this encounter
--- OUTSIDE RECORDS SUMMARY | 2024-10-16 09:21 | XMS_ITS | Encounter Summary ---
Author Organization [facility] Address [address] [place] [address] Phone Care Team Providers Care American History Teacher Name Role Phone Malika March MD Primary Care Provider [phone] Encounter Details Date Type Department Care Team ([facility] Contact Info) Description 04/26/2017 Conversion Encounter [facility] [address] [place] [address] Social History Tobacco Use Types Packs/Day Years [...] on filedocumented in this encounter Care Teams American History Teacher Relationship Specialty Start Date End Date Malika March MD [address] [place] [address] PCP - General Pediatrics 09/08/20 04/17/23 documented as of this encounter
--- OUTSIDE RECORDS SUMMARY | 2024-10-16 09:21 | XMS_ITS | Encounter Summary ---
Author Organization [facility] Address [address] [place] [address] Phone Care Team Providers Care Marquetry Worker Name Role Phone Malika March MD Primary Care Provider [phone] Reason for Visit * Reason Comments Med Refill Encounter Details Date Type Department Care Team ([facility] Contact Info) Description 12/31/2019 Refill [facility] [place] [address] [place] [address] Jeb Ortiz MD [address] [place] [address] Anxiety Social History Tobacco Use Types Packs/Day Years Used Date Smoking Tobacco: Never Smokeless Tobacco: Never Comments:Never smoker Alcohol Use Standard Drinks/Week Comments No 0 (1 standard drink = 0.6 oz pur e alcohol) Hunger/Food Answer Date Recorded No 09/28/2018 Stable Housing Answer Date Recorded No 09/13/2019 Transportation Concerns Answer Date Rec orded No 09/28/2018 Hazards in Home Answer Date Recorded No 09/28/2018 Financing Utilities Answer Date Recorde d No 09/28/2018 Safety at Home Answer Date Recorded No 09/28/2018 Outside Support Answer Date Recorded No 09/28/2018 Understanding Health Concerns Answer Da te Recorded No 09/28/2018 Financing Health Concerns Answer Date R ecorded No 09/28/2018 Missing School or Work Answer Date Cornelius rded No 09/28/2018 Comments No Sex and Gender Information Value Date Recorded Sex Assigned at Not on file Legal Sex Female 5:23 PM EDT Gender Identity Not on file Sexual Orientation Not on file documented as of this encounter Plan of Treatment Not on file documented as of this encounter Visit Diagnoses Diagnosis Anxiety Anxiety state, unspecified documented in this encounter Care Teams Marquetry Worker Relationship Specialty Start Date End Date Malika March MD [address] [place] [id number] PCP - General Pediatrics 09/08/20 04/17/23 documented as of this encounter
--- OUTSIDE RECORDS SUMMARY | 2024-10-16 09:21 | XMS_ITS | Encounter Summary ---
Author Organization [facility] Address [address] [place] [address] Phone Care Team Providers Care Track Oiler Name Role Phone Malika March MD Primary Care Provider [phone] Reason for Visit * Reason Comments Med Refill Encounter Details Date Type Department Care Team ([facility] Contact Info) Description 03/16/2021 Refill [facility] [place] [address] [place] [address] Lucero Sofia MD [address] [place] [address] Excessive and frequent menstruation Social History Tobacco Use Types Packs/Day Years Used Date Smoking Tobacco: Never Smokeless Tobacco: Never Comments:Never smoker Alcohol Use Standard Drinks/Week Comments No 0 (1 standard drink = 0.6 oz pur e alcohol) Hunger/Food Answer Date Recorded In the last 12 months, did y ou or your family ever eat less than you felt you should because there wasn't enough money for food? No 08/31/2020 Stable Housing Answer Date Recorded Are you worried that in the next 2 months you may not have stable housing? No 08/31/2020 Transportation Concerns Answer Date Rec orded In the last 12 months, have you or your family ever had to go without healthcare because you didn't have a way to get there? No 08/31/2020 Hazards in Home Answer Date Recorded Think about the place you li ve. Do you have problems with any of the following? Pests (mice or roaches), mold, no/not working smoke detectors, water leaks, no window guards. No 2019 Financing Utilities Answer Date Recorde d In the last 12 months, has t he electric, gas, oil, or water company threatened to shut off your services in your home? No 08/31/2020 Safety at Home Answer Date Recorded Are you or your family worried about feeling saf e in your home? No 08/31/2020 Outside Support Answer Date Recorded Do you feel that you need mo re support from other people or programs to help you care for yourself or your family? No 08/31/2020 Understanding Health Concerns Answer Da te Recorded Do you need help understandi ng your or your child's healthcare needs (diagnosis, medications, plan, etc.)? No 08/31/2020 Financing Health Concerns Answer Date R ecorded In the last 12 months, was t here a time when your child needed to see a doctor or get medications or supplies but could not because of cost? No 08/31/2020 Missing School or Work Answer Date Cornelius rded Did you or your child miss s chool or work because of a health problem that could have been avoided? No 08/31/2020 Comments No Sex and Gender Information Value Date Recorded Sex Assigned at Not on file Legal Sex Female 5:23 PM EDT Gender Identity Not on file Sexual Orientation Not on file documented as of this encounter Miscellaneous Notes * Telephone Encounter - Wade Stevenson LPN - 03/17/2021 7:30 AM EDT [facility] is requesting a refill on a control. Last PE was 09/01/20 documented in this encounter Plan of Treatment Not on file documented as of this encounter Visit Diagnoses Diagnosis Excessive and frequent menstruation Excessive or frequent menstruation documented in this encounter Care Teams Track Oiler Relationship Specialty Start Date End Date Malika March MD [address] [place] [address] PCP - General Pediatrics 09/08/20 04/17/23 documented as of this encounter
--- OUTSIDE RECORDS SUMMARY | 2024-10-16 09:21 | XMS_ITS | Encounter Summary ---
Author Organization [facility] Address [address] [place] [address] Phone Care Team Providers Care Research Advisor Name Role Phone Malika March MD Primary Care Provider [phone] Reason for Visit * Reason Comments Med Refill Encounter Details Date Type Department Care Team ([facility] Contact Info) Description 09/21/2019 Refill [facility] [place] [address] [place] [address] Jaclyn Lazcano DO [address] [place] [address] Anxiety Social History Tobacco Use Types Packs/Day [...] encounter Miscellaneous Notes * Telephone Encounter - Lyudmila Gibbs NP - 09/22/2019 4:05 PM EST Dose changed. * Telephone Encounter - Lyudmila Gibbs NP - 09/22/2019 4:03 PM EST Spoke with Mom. Jodie is doing well on the prozac 10 and would like to think about stopping this. Careful observation to DC and Mom will call if issues but poncho she feels like she is ready, can try(we had talked about waiting til spring) * Telephone Encounter - Yarelis Atkins LPN - 09/22/2019 12:17 PM EST Pharm fax refill request fluoxetine 20 mg. After review of chart, it looks as though dose was goingto be decreased to 10mg. No pending f/u scheduled. EH documented in this encounter Plan of Treatment Not on file documented as of this encounter Visit Diagnoses Diagnosis Anxiety Anxiety state, unspecified documented in this encounter Care Teams Research Advisor Relationship Specialty Start Date End Date Malika March MD [address] [place] [address] PCP - General Pediatrics 09/08/20 04/17/23 documented as of this encounter
--- OUTSIDE RECORDS SUMMARY | 2024-10-16 09:21 | XMS_ITS | Clinical Summary ---
Author Organization [facility] Address [address] [place] [phone] Phone Care Team Providers Care Hopper Operator Name Role Phone Unavailable Primary Care Provider Unavailabl e Allergies Active Allergy Reactions Criticality Noted Date Comments Food shrimp Medications cetirizine (ZYRTEC ALLERGY) 10 MG tablet Take 10 mg by mouth daily. Active fludrocortisone 0.1 MG tablet TK 1 T PO QD IN THE PATI 4 9 Active TRETINOIN 0.025 % creamIndications :Acne, unspecified acne type APPLY SPARINGLY TO AFFECTED AREA DAILY AT BEDTIME 20 g 9 Active Additional Information Patient not taking.Reported on 09/15/2021 norgestimate-eth inyl estradiol (Sprintec 28) 0.25-35 MG-MCG per tabletIndication s:Excessive and frequent menstruation Take 1 tablet by mouth daily in the morning. 28 tablet 12 2 Active Active Problems Problem Noted Date Diagnosed Date BMI 36.0-36.9,adult 09/21/2021 Elevated BP without diagnosis of hypertension Assessment & Plan (09/21/2021 2:22 PM EST): Jodie was previously treated for symptomatic hypotension by Dr. Schulz ([facility]). She was taking fludrocortisone which helped her symptoms. She has been off it for a few months and feels well. Has not gone back to cardiology since Dr. Schulz left the practice. She has been hypertensive at the past couple of visits and today. I am concerned about this and would like her to see cardiology again. Can see Dr. Bal or Dr. Sirota. Contact info given. We are also checking fasting lipids and a metabolic panel. Urine is remarkable for blood, no protein. Hypercholesterolemia 08/22/2021 Menstrual migraine without s tatus migrainosus, not intractable 01/07/2019 Overview (01/07/2019): Was seen by Jossy Pizarro MD at [facility] [place] 11/15/18 for syncope and referred to cardiology but Neuro wanted follow up in 6 mo, magnesuim 400mg for catamenial SMITH, increased fluid and electrolyte intake and increased activity level. Dizziness 09/16/2018 Overview (08/20/2019): Doing MUCH better with this 08/28. Drinking more fluids and taking fludrocortisone 0.1mgm qd Assessment & Plan (09/16/2018 3:03 PM EST): Frequent episodes that seem to start with dizziness, but whole cascade of events happens pretty quickly But unsure why is still happening; reviewed suggestions for increase water intake and salt intake; specific sugg's reviewed Mom quite worried as is patient since we haven't really discovered etiology; will refer to [facility] neuro for consultation; could this be migraine variant? Advised to try these other suggestions in the meantime while await appointment Seasonal allergic rhinitis due to pollen 018 Overview (07/08/2018): Uses zyrtec seasonally Anxiety 12/19/2017 Overview (08/20/2019): Admitted to [facility] 12/26 with palpitations, feeling anxious, episodes of feeling out of it . Normal labs, normal video EEG (had 6 episodes while on the video EEG and no sz noted), nl EKG. Had a normal brain MRI, nl EKG, nl EEG and Cardiology consult for episodes of syncope fall 2016. Diag now with anxiety. Started on fluoxetine and counseling 12/26 with improvement. 08/28 wants to decrease her prozac from 20 to 10mgm qd. Feels she is doing well and would like to taper off it. Assessment & Plan (09/21/2021 2:24 PM EST): Warm handoff to Eloise BRADLEY. Appreciate Yen's concern about ADHD. Discussed that this diagnosis in adulthood would involve consultation with a psychiatrist typically. Discussed also that anxiety can present with signs of inattention and may be a factor in her current difficulties, as she has had anxiety before. We agreed to try therapy - may have a different experience this time - and explore this angle first. Assessment & Plan (09/16/2018 3:01 PM EST): Because she's on such low dose and these episodes are happening on regular basis, and, anxiety was felt to possibly be a component, reviewed option of increasing fluoxetine to 20 mg daily Parent and patient okay with trying this to see if will make a difference for her Assessment & Plan (07/15/2018 6:20 PM EST): Seeing therapist every other week; taking fluoxetine 10 mg daily and working well Recheck in 3 months Assessment & Plan (04/08/2018 11:34 AM EDT): Doing very well on Fluoxetine 10 mg daily without any side effects Anxiety is much better controlled Occasional symptoms but not unbearable and very manageable Still seeing her therapist on a regular basis which is going very well Continue same medicine at same dose Recheck in 3 months at her physical Hypermetropia of right eye 07/13/2017 Overview (07/13/2017): Had full eye exam with Dr. Melgoza 06/26. OD 20/40. OS 20/25. Diag with hyperopia. No treatment needed. F/U with 2 years. Syncope 06/25/2017 Overview (08/20/2019): Images from the original note were not included. Jodie has had several episodes of syncope but the last one 06/26 was questionable for a seizure. Seen in the ER. Had a consultation with Peds Cardiology ([facility]) and they felt if a sz is ruled out she most likely has neurogenic or vasovagal syncope. He has had a normal cardiac exam and a normal EKG at the cardiologists. She has had a normal MRI of her brain 06/26. She had a normal 24 hour EEG. Labs have also been negative. Had f/u with cardiol/ and felt to have vasovagal syncope that was responding well to fluids. 11/26 Dr Schulz pedi cards Acne 11/27/2016 Overview (08/20/2019): On benzoyl peroxide wash and tretinoin cream qhs. Also on OCPs for this. 08/28 skin doing well Assessment & Plan (04/08/2018 11:34 AM EDT): Doing well on current meds-uses retin-a qhs Excessive or frequent menstruation 11/27/2016 Overview (05/24/2017): Periods are long and heavy. OCPs started for this 11/24. Assessment & Plan (07/15/2018 6:19 PM EST): Doing well on ocps; continue same Assessment & Plan (04/08/2018 11:34 AM EDT): Stable on ocps Immunizations Immunization Administration Dates Next Due DTaP 5 08/22/2006, 4,01/02/2003,09/12,2002 HPV Vaccine 9 Valent 11/24/2016,05/24/2016 Hep A, ped/adol 05/24/2016,03/24/2015 Hep B, ped/adol 07/27/2003,01/02/2003,2002 Hib (PRP-T) 07/27/2003, 3,2002,04/25 IPV 01/23/2007, 4,2002,04/25 Influenza Split 07/23/2013, 2,07/05/2011,10/18 Influenza, injectable, MDCK, preservative free, quadrivalent 08/24/2021,07/06/2020 Influenza, injectable, quadrivalent 08/26/2015,1 09/24/2013 Influenza, injectable, quadr ivalent, preservative free 06/09/2019,07/08/2018,07/04/2017,05/24 Influenza, injectable, trivalent 10/28/2008,08/10,07/23/2006 MMR 02/23/2003 MMRV 01/23/2007 Meningococcal B Trumenba 09/01/2020,08/20/2019 Meningococcal Conj (Menactra) MCV4P 07/08/2018,0 10/31/2013 Pneumococcal Conjugate 07/27/2003,2002,2002,04/25 Tdap 10/31/2013 Varicella 02/23/2003 Family History Relation Name Status Comments Father Alive Father: Bipolar , Elevated Cholesterol Mother Alive Mother: Asthma Other No family histo ry of Deafness, No family history of *Heart Disease, Family history of Hyperlipidemia, Family history of Obesity, No family history of Seizure disorder, No family history of Developmental dislocation of hip, No family history of *Sudden /NE under 55, No family history of ADD/ADHD, No family history of Diabetes mellitus, No family history of Strabismus, No family history of Migraines, Family history of *Dental caries, Family history of Cancer, lung, Family history of Elevated cholesterol, No family history of *CVA/Stroke, Family history of Asthma Paternal Grandfather Alive Paterna l grandfather: Suicide in his 20's Sister Alive Sister: Asthma Social History Tobacco Use Types Packs/Day Years Used Date Smoking Tobacco: Never Smokeless Tobacco: Never Tobacco Cessation:Counseling Given: Yes Comments:Never smoker Alcohol Use Standard Drinks/Week Comments No 0 (1 standard drink = 0.6 oz pur e alcohol) Hunger/Food Answer Date Recorded In the last 12 months, did y ou or your family ever eat less than you felt you should because there wasn't enough money for food? No 09/15/2021 Stable Housing Answer Date Recorded Are you worried that in the next 2 months you may not have stable housing? No 09/15/2021 Transportation Concerns Answer Date Rec orded In the last 12 months, have you or your family ever had to go without healthcare because you didn't have a way to get there? No 09/15/2021 Hazards in Home Answer Date Recorded Think about the place you li ve. Do you have problems with any of the following? Pests (mice or roaches), mold, no/not working smoke detectors, water leaks, no window guards. No 2021 Financing Utilities Answer Date Recorde d In the last 12 months, has t he electric, gas, oil, or water company threatened to shut off your services in your home? No 09/15/2021 Safety at Home Answer Date Recorded Are you or your family worried about feeling saf e in your home? No 09/15/2021 Outside Support Answer Date Recorded Do you feel that you need mo re support from other people or programs to help you care for yourself or your family? No 09/15/2021 Understanding Health Concerns Answer Da te Recorded Do you need help understandi ng your or your child's healthcare needs (diagnosis, medications, plan, etc.)? No 09/15/2021 Financing Health Concerns Answer Date R ecorded In the last 12 months, was t here a time when your child needed to see a doctor or get medications or supplies but could not because of cost? No 09/15/2021 Missing School or Work Answer Date Cornelius rded Did you or your child miss s chool or work because of a health problem that could have been avoided? No 09/15/2021 Comments No Sex and Gender Information Value Date Recorded Sex Assigned at Not on file Legal Sex Female 5:23 PM EDT Gender Identity Not on file Sexual Orientation Not on file Last Filed Vital Signs Vital Sign Reading Time Taken Comments Blood Pressure 132/78 09/15/2021 11:54 AM EST Pulse 121 09/15/2021 10:18 AM EST Temperature 37.2 ??C (99 ??F) 09/15/2021 10:18 AM EST Respiratory Rate - - Oxygen Saturation 95% 12/14/2017 8:58 AM EDT Inhaled Oxygen Concentration - - Weight 99.6 kg (219 lb 9.6 oz) 09/15/2021 10:18 AM EST Height 165.1 cm (5' 5 ) 09/15/2021 10:18 AM EST Body Mass Index 36.54 09/15/2021 10:18 AM EST Plan of Treatment Health Maintenance Due Date Last Done Comments DTaP,Tdap,and Td Vaccines (7 - Td or Tdap) 10/31/2023 10/31/2013, 08/22/2006, 11/13/2003, Additional history exists Influenza Vaccines (#1) 2024 06/09/20 22, 08/24/2021, 07/06/2020, Additional history exists COVID-19 Vaccine (2023- 5 season) 2024 04/10/2022, 08/24/2021, 12/22/2020, Additional history exists HIB Vaccines Completed 07/27/2003, 12/10, 2002, Additional history exists Hepatitis B Vaccines Completed 07/27/2003, 01/02/2003, 2002 Pneumococcal Vaccine Completed 07/27/2003, 01/02/2003, 2002, Additional history exists IPV Vaccines Completed 01/23/2007, 01/2004, 2002, Additional history exists MMR Vaccines Completed 01/23/2007, 02/23/2003 Varicella Vaccines Completed 01/23/2007, 02/23/2003 Hepatitis A Vaccines Completed 05/24/2016, 03/24/20 15 HPV Vaccines Completed 11/24/2016, 05/24/2016 Meningococcal Vaccine Completed 07/08/2018, 014 Men B Vaccine Completed 09/01/2020, 08/20/2019 Procedures * Due to [place] [employer] law, this organization might not be sharing sensitive test results. Procedure Name Priority Date/Time Associated Diagnosis Comments CHLAMYDIA AND GONORRHEA, AMPLIFIED Routine 09/15/2021 8:12 PM EST Special screening examination for chlamydial disease from Last 3 Months or Most Recently Relevant to Health Maintenance Results * Due to [facility] law, this organization might not be sharing sensitive test results. * Chlamydia and Gonorrhoea, Amplified (09/15/2021 8:12 PM EST) Chlamydia Trachomatis, DNA Probe NEGATIVE (NEG) [facility] Comment: No Chlamydia Trachomatis RNA detected in this patient's sample ? (REFERENCE RANGE/NORMAL VALUE: NOT DETECTED) ? Note: This test uses warehouse laborer- mediated amplification method to detect rRNA from C. Trachomatis URINE GC AMP PROBE NEGATIVE (NEG) [facility] Comment: No Neisseria Gonorrhoeae RNA detected in this patient's sample ? (REFERENCE RANGE/NORMAL VALUE: NOT DETECTED) ? NOTE: This test uses warehouse laborer-mediated amplification method to detect rRNA from N.Gonorrhoeae. A negative result does not preclude infection. In the case of a negative urine result, testing of an endocervical(female) or urethral (male) specimen is recommended if there is high clinical suspicion of infection. Due to very high sensitivity of Nucleic Acid Amplification Test, false positive results may occur. Therefore, specimen handling is extremely important. In patients in whom the disease is unlikely, additional sample for testing should be considered after an initial positive result. The performance characteristics of this test have not been evaluated in children. The Aptima Combo2 assay is not intended for the evaluation of suspected sexual abuse or for other medico-legal indications. The ordering provider should assess if the patient had consensual sex without risk of sexual abuse. Consult the [facility] if needed. Contact phone number . Therapeutic failure or success cannot be determined with the Aptima Combo2 assay since nucleic acid may persist following appropriate antimicrobial therapy. The Centers for Disease Control and Prevention (CDC) recommends confirmatory retesting using culture or a different nucleic acid amplification test when positive results occur, if indicated. Testing performed or reported by [facility], a Service of [facility], [address] [place] [address] Golden Russell MD, Flight Steward [facility]# [id number] Urine 09/15/2021 8:12 PM EST 09/15/2021 8:13 PM EST Malika March MD LAB MICROBIOLOGY - GENERAL KIA VALLADARES Final Result [facility] from Last 3 Months or Most Recently Relevant to Health Maintenance Insurance [facility] NON PCC
[2024-10-16 15:41] VITALS: BMI 40.3
--- NOTE | 2024-10-16 15:41 | A.OFFPC_ITS ---
Vital Signs 10/16/24 15:41 Height 5 ft 5 in Weight 242 lb BMI 40.3 Intake Visit Reasons: telehealth follow up Allergies No Known Allergies [No Known Allergies*] Allergy (Verified 10/16/24 15:41) Medication List - Last Reconciled 10/16/24 by Yanira Perez, [facility]- albuterol sulfate 2.5 mg (3 mL) inhalation Q4-6H PRN albuterol sulfate 90 mcg/actuation 2 puffs inhalation Q4-6H PRN 30 days buspirone 15 mg PO DAILY cetirizine (All Day Allergy (cetirizine)) 10 mg PO DAILY clonazepam 0.25 mg PO BID PRN clonazepam 1 mg PO BID PRN compressor, for nebulizer As directed escitalopram oxalate 20 mg PO DAILY meloxicam 15 mg PO DAILY methylphenidate HCl (Ritalin) 20 mg PO BID nebulizer accessories (Adult Aerosol Mask) As directed norethindrone-ethin estradiol 0.5-35 mg-mcg (Necon) 1 tab PO DAILY propranolol 20 mg PO BID Tobacco use date assessed: 10/16/24 Dental Screening Dental Screen Date: 10/16/24 Did you have a dental visit in the last 12 months?: Yes Did you have a dental problem in the last 6 months where you did not have access to dental care?: No Was dental information given to patient?: Patient has dentist HPI HPI Comments History of Present Illness Details TELEVIDEO VISIT The patient is a 24-year-old female presenting with concerns related to obesity and seeking options for weight management. She has been following a calorie deficit and exercise plan; however, she reports no significant weight loss. She expresses concern about her morbid obesity status, especially due to her family history of diabetes and heart conditions. The patient's weight management journey included completing a preparatory course at a [facility], which emphasized surgical options. Her preference, based on previous c onversations, has been to pursue non-invasive measures such as nutritional changes and exercise to manage her weight. However, her current lack of weight loss despite these efforts has led her to consider pharmacological interventions, specifically expressing interest in GLP-1 receptor agonists after self-research, although she is aware of potential side effects like gastrointestinal discomfort and thyroid-related risks. Social History - The patient is actively following a ca marko deficit and exercise regime. - Concerned about morbid obesity due to a family history of diabetes and heart conditions. - Expresses an interest in dietary and l ifestyle changes over invasive measures or long-term medication reliance. Physical Exam limited by video General: Awake, alert. No apparent distress Eyes: Sclera and conjunctiva clear bilaterally Speaking in full sentences Smiling and engaging Discussion Notes I discussed with the patient her options for weight management, emphasizing the importance of sustainable and safe methods. I expressed my reservations regarding GLP-1 receptor agonists due to poor insurance coverage, limited availability, the necessity for lifelong use, potential weight regain after discontinuation, and long-term cancer risks. I introduced metformin as a safer alternative with a similar mechanism of delaying gastric emptying, aiding in insulin resistance management, and potentially contributing to weight loss without lifelong commitment. We discussed possible gastrointestinal side effects and the benefit of prolonged release formulations to mitigate these. Metformin was recommended given its affordability, safety, and appropriateness without interaction with her current medications. I advised on the importance of appropriate caloric intake strategies to avoid metabolic slowdown, and I committed to providing a specific calorie and macronutrient plan. Wellbutrin could also be considered however she would need to review this with his recreation activities coordinator Lauren before proceeding. Mood is stable on current meds. Patient Instructions - Start metformin 500 mg once daily with the evening meal. - Do not take metformin on an empty stom ach. - Follow the calorie and macronutrient g uidance provided. - Monitor weight by checking how clothin g fits rather than using the scale daily. - Maintain diet and exercise routines, a djusting for calorie intake adjustments. - Schedule a follow-up in 8 to 12 weeks, either in-person or telehealth if able to weigh herself. - Contact the office with any side effec ts or concerns. Plan - Prescribe metformin 500 mg once daily with the evening meal to assist weight reduction and manage insulin resistance. - Provide a detailed calorie and macro i ntake plan to balance nutritional needs without unduly prolonged calorie deficit periods. - Encourage continuation of current exer cise and revised dietary plan to support weight management goal. - Instruct monitoring of progress using fitting of clothes rather than daily weight checks to alleviate weight fluctuation concerns. - Schedule follow-up in 8-12 weeks to re view progress and adjust the therapeutic plan as necessary. 150-180 lbs x 12 = 1800- 2100 cals/day Deficit 6919-8065 Protein 180-200 g/day Carbs 130-150 g/day Fats 46-66 g/day Patient was informed and verbally consented to the use of an ambient scribe for clinic note documentation during this visit [facility] Medical History Depression Anxiety Asthma Surgical History No pertinent past surgical history Family History Mother Asthma Father Psychiatric disorder Substance use disorder Maternal Grandmother Diabetes High cholesterol Paternal Grandmother High cholesterol Maternal Grandfather High cholesterol Cardiovascular disease Paternal Grandfather High cholesterol Psychiatric disorder Substance use disorder Sister Psychiatric disorder Social History (Updated 11/02/23 @ 11:11 by July Melendez CMA) Household Members: Significant Other Housing: House Are you a primary director critical care to a significant other at home: No Do you presently have visiting nurse or other home services: No 75 years or older and lives alone: No Alcohol intake: current Alcohol intake frequency: holidays/special occasions only Patient Tobacco Use Status: Never used Tobacco e-Cigarette/Vaping Use: Never Used Second Hand Smoke Exposure: No service: No Current occupational status: employed Current occupation: [employer] Current occupational exposures/hazards: No Sexual orientation: Straight/Heterosexual Gender identity: Female Cognitive needs: No Hearing needs: No Vision needs: No Questionnaire Thrive Questionnaire Date Thrive assessed: 09/24/24 WILMAR-7 AMB Questionnaire WILMAR-7 Date WILMAR - 7 assessed: 09/24/24 Source: Developed by Drs. Chago Vicente, Mi Avalos, Awais Toledo and colleagues, with an educational magdi from [employer]. Physical exam (Primary Care) Tobacco/Smoking Status: Tobacco use Status Tobacco use date assessed 04/03/24 09/24/24 13:40 Patient Tobacco Use Status Never used Tobacco 09/24/24 13:40 e-Cigarette/Vaping Use Never Used 09/24/24 13:40 Thrive Assessment: Date of Thrive Assessment Date Thrive assessed 09/24/24 09/24/24 13:40 Telehealth Telehealth Telehealth Platform: [facility] Location of provider rendering services: practice address Location of patient: address on file Patient Identification confirmed using: Name, : Yes Telehealth method: video Patient verbally consented to treatment: Yes Patient verbally consented to billing insurance company: Yes Patient informed of any privacy concerns related to visit: Yes Minutes spent on Phone/Video with Pt.: 40 Coding Level of Care Code Tele Est Pt Level 5 (31523) Complex EM visit Add On G2211 Diagnoses Morbid obesity with BMI of 40.0-44.9, adult E66.01; Z68.41 WILMAR (generalized anxiety disorder) F41.1 Mild episode of recurrent major depressive disorder F33.0 Major depression episode severity: mild Assessment & Plan Assessment & Plan (1) Morbid obesity with BMI of 40.0-44.9, adult: Comment: negative endo workup I have encouraged her to continue her efforts at eating a clean diet and exercising 5 times per week. Code(s): E66.01 - Morbid (severe) obesity due to excess calories; Z68.41 - Body mass index [BMI] 40.0-44.9, adult Category: Medical (2) WILMAR (generalized anxiety disorder): Comment: Active with outside psychiatry Lauren Bustamante. Managed on buspirone escitalopram and clonazepam. Code(s): F41.1 - Generalized anxiety disorder Category: Medical (3) MDD (major depressive disorder), recurrent episode: Comment: Active with outside psychiatry Lauren Bustamante. Managed on buspirone esci talopram and clonazepam. Code(s): F33.9 - Major depressive disorder, recurrent, unspecified Category: Medical Qualifiers: Major depression episode severity: mild Qualified Code(s): F33.0 - Major depressive disorder, recurrent, mild Plan . Medications: New metformin ER 500 mg PO QPM 90 tabs 0RF
== END 2024-10-16 14:52 | disposition home or self-care (01) ==
LOC: HO.HMCFM 09:17
PROVIDERS: PCP Nurse Practitioner Family; Visit Provider Nurse Practitioner Family
DX: F33.0 Major depressive disorder, recurrent, mild (principal); E66.01 Morbid (severe) obesity due to excess calories; Z68.41 Body mass index [BMI] 40.0-44.9, adult; F41.1 Generalized anxiety disorder

== ENCOUNTER 2024-11-07 13:46 | Outpatient (AMB) | payer OTHER, SELFPAY ==
--- NOTE | 2024-11-07 15:20 | A.OFFPC_ITS ---
Intake Visit Reasons: medication review Intake Note: follow up on med review Perinatology Physician Required: No Allergies No Known Allergies [No Known Allergies*] Allergy (Verified 11/07/24 15:33) Medication List - Last Reconciled 11/07/24 by Yanira Perez [facility]- albuterol sulfate 2.5 mg (3 mL) inhalation Q4-6H PRN albuterol sulfate 90 mcg/actuation 2 puffs inhalation Q4-6H PRN 30 days buspirone 15 mg PO DAILY cetirizine (All Day Allergy (cetirizine)) 10 mg PO DAILY clonazepam 0.25 mg PO BID PRN clonazepam 1 mg PO BID PRN compressor, for nebulizer As directed escitalopram oxalate 20 mg PO DAILY meloxicam 15 mg PO DAILY metformin ER 500 mg PO QPM methylphenidate HCl (Ritalin) 20 mg PO BID nebulizer accessories (Adult Aerosol Mask) As directed norethindrone-ethin estradiol 0.5-35 mg-mcg (Necon) 1 tab PO DAILY propranolol 20 mg PO BID Tobacco use date assessed: 11/07/24 Dental Screening Dental Screen Date: 11/07/24 Did you have a dental visit in the last 12 months?: Yes Did you have a dental problem in the last 6 months where you did not have access to dental care?: No Was dental information given to patient?: Patient has dentist HPI HPI Comments History of Present Illness Details History of Present Illness - The patient is a 24-year-old female w ith a recent occurrence of cold sore and an inquiry about metformin dosing. - Cold sore: The patient experienced a c old sore on her chin last week, onset after feeling stressed during midterms. This is her first occurrence, despite family history; her mother experiences cold sores. Applied Abreva and took Valacyclovir, which resolved the sore over four days. - Metformin Dosing: The patient started metformin on October 16 and inquired about potential dosage increase based on her sister's similar experience. Physical Exam Limited physical exam was conducted Awake alert NAD Speaking in full sentences Engaging, appropriate Skin pink warm and dry Mood and affect appropriate Assessment and Plan 1. Cold Sores (Herpes Simplex): The nyasia ent's cold sore episode is documented, possibly stress-induced, and managed successfully with topical and prescribed medication. I provided guidance on recognizing early symptoms and controlling stress to prevent further outbreaks. Send portal message or come to walk in for next outbreak PRN 2. Metformin Dosing Inquiry: The patient will remain on the current metformin dose to evaluate its effectiveness over a full 8-12 week period before considering any dosage changes. The decision is based on optimizing treatment efficacy and minimizing unnecessary dose changes. Telehealth Attestation The visit was conducted via a secure telemedicine platform. The documentation accurately reflects the care provided during the telehealth encounter. The patient has been explained that this is an interactive (audio/video) telehealth encounter and what that consists of. The patient understands and wishes to proceed. Anchor™ platform was used. Total time spent caring for the patient today was 18 minutes. This includes time spent before the visit reviewing the chart, time spent during the visit, and time spent after the visit on documentation, reviewing laboratory results, diagnostic imaging, medications, performing a medically necessary evaluation, counseling on diagnoses, care coordination, ordering appropriate tests, ordering appropriate medications, review of tests performed by other providers, reporting test results with the patient, communication with other healthcare providers. [facility] Medical History Depression Anxiety Asthma Surgical History No pertinent past surgical history Family History Mother Asthma Father Psychiatric disorder Substance use disorder Maternal Grandmother Diabetes High cholesterol Paternal Grandmother High cholesterol Maternal Grandfather High cholesterol Cardiovascular disease Paternal Grandfather High cholesterol Psychiatric disorder Substance use disorder Sister Psychiatric disorder Social History (Updated 11/02/23 @ 11:11 by July Melendez CMA) Household Members: Significant Other Housing: House Are you a primary patient care assistant to a significant other at home: No Do you presently have visiting nurse or other home services: No 75 years or older and lives alone: No Alcohol intake: current Alcohol intake frequency: holidays/special occasions only Patient Tobacco Use Status: Never used Tobacco e-Cigarette/Vaping Use: Never Used Second Hand Smoke Exposure: No service: No Current occupational status: employed Current occupation: [employer] Current occupational exposures/hazards: No Sexual orientation: Straight/Heterosexual Gender identity: Female Cognitive needs: No Hearing needs: No Vision needs: No Questionnaire PHQ-9 Over the last 2 weeks, how often have you been bothered by any of the following problems? 74999 - PHQ-9 Billing: Patient declined-do not bill Source: Developed by Drs. Chago Vicente, Mi Avalos, Awais Toledo and colleagues, with an educational magdi from dVisit. Thrive Questionnaire Date Thrive assessed: 11/07/24 I am a: Patient What is your living situation today?: I have a steady place to live Within the past 12 months, did the food you bought not last and you didn't have the money to get more?: Never true Within the past 12 months, did you worry whether your food would run out before you got money to buy more?: Never true Do you have trouble paying for medicines?: No Do you have trouble getting transportation to medical appointments?: No Do you have trouble paying your heating and electricity bill?: No Do you have trouble taking care of your child, family member or friend?: No Do you have trouble with day-to-day activities such as bathing, preparing meals, shopping, managing finances, etc.?: No Are you currently unemployed and looking for a job?: No Are you interested in more education?: No THRIVE Score: 0 WILMAR-7 AMB Questionnaire WILMAR-7 Date WILMAR - 7 assessed: 09/24/24 Source: Developed by Drs. Chago Vicente, Mi Avalos, Awais Toledo and colleagues, with an educational magdi from dVisit. Physical exam (Primary Care) Tobacco/Smoking Status: Tobacco use Status Tobacco use date assessed 11/07/24 11/07/24 15:22 Patient Tobacco Use Status Never used Tobacco 11/07/24 15:22 e-Cigarette/Vaping Use Never Used 11/07/24 15:22 Thrive Assessment: Date of Thrive Assessment Date Thrive assessed 11/07/24 11/07/24 15:22 Telehealth Telehealth Telehealth Platform: Telephone Location of provider rendering services: practice address Location of patient: address on file Patient Identification confirmed using: Name, : Yes Telehealth method: video Patient verbally consented to treatment: Yes Patient verbally consented to billing insurance company: Yes Patient informed of any privacy concerns related to visit: Yes Minutes spent on Phone/Video with Pt.: 14 Coding Level of Care Code Tele Est Pt Level 3 (10618) Complex EM visit Add On G2211 Diagnoses Cold sore B00.1 Morbid obesity with BMI of 40.0-44.9, adult E66.01; Z68.41 Assessment & Plan Assessment & Plan (1) Cold sore: Code(s): B00.1 - Herpesviral vesicular dermatitis Category: Medical (2) Morbid obesity with BMI of 40.0-44.9, adult: Comment: negative endo workup I have encouraged her to continue her efforts at eating a clean diet and exercising 5 times per week. Code(s): E66.01 - Morbid (severe) obesity due to excess calories; Z68.41 - Body mass in dex [BMI] 40.0-44.9, adult Category: Medical Plan .
--- OUTSIDE RECORDS SUMMARY | 2024-11-07 15:52 | XMS_ITS | Clinical Summary ---
Author Organization [facility] Address [address] [place] [address] Phone Care Team Providers Care Spinning Machine Tender Name Role Phone Unavailable Primary Care Provider [...] Was seen by Jossy Pizarro MD at [facility] [place] 11/15/18 for syncope and referred to cardiology [...] haven't really discovered etiology; will refer to [facility] neuro for consultation; could this be migraine variant? Advised to try these other suggestions in the meantime while await appointment Seasonal allergic rhinitis due to pollen 018 Overview (07/08/2018): Uses zyrtec seasonally Anxiety 12/19/2017 Overview (08/20/2019): [place] [facility] [place] with palpitations, feeling anxious, episodes of [...] (04/08/2018 11:34 AM EDT): Stable on ocps Encounters Date Type Department Care Team Description 11/06/2024 Telephone [facility] - [address] [address] Marlene Jiang MD Medical Records from Last 3 Months Immunizations Immunization Administration Dates Next Due DTaP [...] of hip, No family history of *Sudden /[place] under 55, No family history of ADD/ADHD, [...] Additional history exists Influenza Vaccines (#1) 2024 06/09/20, 08/24/2021, 07/06/2020, Additional history exists COVID-19 Vaccine (2023-2 5 season) 2024 04/10/2022, 08/24/2021, 12/22/2020, Additional history exists HIB Vaccines Completed 07/27/2003, 12/10, 2002, Additional history exists Hepatitis B Vaccines Completed 07/27/2003, 01/02/2003, 2002 Pneumococcal Vaccine Completed 07/27/2003, 01/02/2003, 2002, Additional history exists IPV Vaccines Completed 01/23/2007, 01/2004, 2002, Additional history exists MMR Vaccines Completed 01/23/2007, 02/23/2003 Varicella Vaccines Completed 01/23/2007, 02/23/2003 Hepatitis A Vaccines Completed 05/24/2016, 03/24/20 HPV Vaccines Completed 11/24/2016, 05/24/2016 Meningococcal Vaccine Completed 07/08/2018, 014 Men B Vaccine Completed 09/01/2020, 08/20/2019 Procedures * Due to [place] u[employer] law, this organization might not be sharing sensitive test results. Procedure Name Priority Date/Time Associated Diagnosis Comments CHLAMYDIA AND GONORRHEA, AMPLIFIED Routine 09/15/2021 8:12 PM EST Special screening examination for chlamydial disease from Last 3 Months or Most Recently Relevant to Health Maintenance Results * Due to [place] u[employer]aber law, this organization might not be sharing sensitive test results. * Chlamydia and Gonorrhoea, Amplified (09/15/2021 8:12 PM EST) Chlamydia Trachomatis, DNA Probe NEGATIVE (NEG) [facility] Comment: No Chlamydia Trachomatis RNA detected in this patient's sample ? (REFERENCE RANGE/NORMAL VALUE: NOT DETECTED) ? Note: This test uses coffee sommelier- mediated amplification method to detect rRNA from C. Trachomatis URINE GC AMP PROBE NEGATIVE (NEG) [facility] Comment: No Neisseria Gonorrhoeae RNA detected in this patient's sample ? (REFERENCE RANGE/NORMAL VALUE: NOT DETECTED) ? NOTE: This test uses coffee sommelier-mediated amplification method to detect rRNA from N.Gonorrhoeae. [...] without risk of sexual abuse. Consult the [facility] if needed. Contact phone number . Therapeutic failure or success cannot be determined with the Aptima Combo2 assay since nucleic acid may persist following appropriate antimicrobial therapy. The Centers for Disease Control and Prevention (CDC) recommends confirmatory retesting using culture or a different nucleic acid amplification test when positive results occur, if indicated. Testing performed or reported by [facility], a Service of [facility], [address] [place] [address] [place] [address] Golden Russell MD, Towel Inspector [facility]# [id number] Urine 09/15/2021 8:12 PM EST 09/15/2021 8:13 PM EST Malika March MD LAB MICROBIOLOGY - GENERAL KIA VALLADARES Final Result [facility] from Last 3 Months or Most Recently Relevant to Health Maintenance
--- OUTSIDE RECORDS SUMMARY | 2024-11-07 15:52 | XMS_ITS | Encounter Summary ---
Author Organization [facility] Address [address] [place] [address] Phone Care Team Providers Care Used Car Manager Name Role Phone Malika March MD Primary Care Provider [phone] Reason for Visit * Reason Comments Med Refill Encounter Details Date Type Department Care Team ([facility] Contact Info) Description 09/21/2019 Refill [facility] [place] [address] [place] [address] Jaclyn Lazcano DO [address] [place] [address] Anxiety Social History Tobacco Use Types Packs/Day [...] unspecified documented in this encounter Care Teams Used Car Manager Relationship Specialty Start Date End Date Malika March MD [address] [place] [address] PCP - General Pediatrics 09/08/20 04/17/23 documented as of this encounter
--- OUTSIDE RECORDS SUMMARY | 2024-11-07 15:52 | XMS_ITS | Encounter Summary ---
Author Organization [facility] Address [address] [place] [address] Phone Care Team Providers Care Office Service Coordinator Name Role Phone Malika March MD Primary Care Provider Encounter Details Date Type Department Care Team ([facility] Contact Info) Description 04/26/2017 Conversion Encounter [facility] [address] [place] [address] Social History Tobacco Use Types Packs/Day Years [...] on filedocumented in this encounter Care Teams Office Service Coordinator Relationship Specialty Start Date End Date Malika March MD [address] [place] [address] PCP - General Pediatrics 09/08/20 04/17/23 documented as of this encounter
--- OUTSIDE RECORDS SUMMARY | 2024-11-07 15:52 | XMS_ITS | Encounter Summary ---
Author Organization [facility] Address [address] [place] [address] Phone Care Team Providers Care Relations Liaison Name Role Phone Malika March MD Primary Care Provider [phone] Reason for Visit * Reason Comments Med Refill Encounter Details Date Type Department Care Team ([facility] Contact Info) Description 03/16/2021 [place] [facility] [place] [address] [place] [address] Lucero Sofia MD [address] [place] [address] Excessive and frequent menstruation Social History Tobacco [...] menstruation documented in this encounter Care Teams Relations Liaison Relationship Specialty Start Date End Date Malika March MD [address] [place] [address] PCP - General Pediatrics 09/08/20 04/17/23 documented as of this encounter
--- OUTSIDE RECORDS SUMMARY | 2024-11-07 15:52 | XMS_ITS | Encounter Summary ---
Author Organization [facility] Address [address] [place] [address] Phone Care Team Providers Care Shale Processing Technician Name Role Phone Malika March MD Primary Care Provider [phone] Encounter Details Date Type Department Care Team ([facility] Contact Info) Description 12/11/2016 Documentation [facility] Family Medicine [address] [place], [place] [id number] Family Medicine, Physician [address] [place], [place] [address] Social History Tobacco Use Types Packs/Day Years [...] on filedocumented in this encounter Care Teams Shale Processing Technician Relationship Specialty Start Date End Date Malika March MD [address] [place] [address] PCP - General Pediatrics 09/08/20 04/17/23 documented as of this encounter
--- OUTSIDE RECORDS SUMMARY | 2024-11-07 15:52 | XMS_ITS | Encounter Summary ---
Author Organization [facility] Address [address] [place] [address] Phone Care Team Providers Care Mohel Name Role Phone Malika March MD Primary Care Provider Reason for Visit * Reason Comments Med Refill Encounter Details Date Type Department Care Team ([facility] Contact Info) Description 12/31/2019 Refill [facility] [place] [address] [place] [address] Jeb Ortiz MD [address] [place] [address] Anxiety Social History Tobacco Use Types Packs/Day [...] unspecified documented in this encounter Care Teams Mohel Relationship Specialty Start Date End Date Malika March MD [address] [place] [address] PCP - General Pediatrics 09/08/20 04/17/23 documented as of this encounter
--- OUTSIDE RECORDS SUMMARY | 2024-11-07 15:52 | XMS_ITS | Encounter Summary ---
Author Organization [facility] Address [address] [place] [address] Phone Care Team Providers Care Government Minister Name Role Phone Unavailable Primary Care Provider Unavailabl e Reason for Visit * Reason Onset Date Comments Medical Records 11/06/2024 Encounter Details Date Type Department Care Team ([facility] Contact Info) Description 11/06/2024 Telephone [facility] [place] [address] [place] [address] Marlene Jiagn MD [address] [place] [address] Medical Records Social History Tobacco Use Types Packs/Day Years [...] encounter Miscellaneous Notes * Telephone Encounter - Yusra Sebastian - 11/06/2024 12:28 PM EST Authorization for Release of Records received on 10/07/24 completed by Patient. Records Faxed on 10/07/24 by Yusra Sebastian. Records Faxed to [facility] at [phone] to/by Yusra Sebastian on 11/06/24. documented in this encounter Plan of Treatment Not on file documented as of this encounter Visit Diagnoses Not on filedocumented in this encounter
== END 2024-11-07 17:05 | disposition home or self-care (01) ==
LOC: HO.HMCFM 13:46
PROVIDERS: PCP Nurse Practitioner Family; Visit Provider Nurse Practitioner Family
DX: B00.1 Herpesviral vesicular dermatitis (principal); E66.01 Morbid (severe) obesity due to excess calories; Z68.41 Body mass index [BMI] 40.0-44.9, adult

== ENCOUNTER 2024-12-26 10:23 | Outpatient (AMB) | payer OTHER, SELFPAY ==
--- OUTSIDE RECORDS SUMMARY | 2024-12-26 11:18 | XMS_ITS | Encounter Summary ---
Author Organization [facility] Address [address] [place] [address] Phone Care Team Providers Care Assistant Principal Name Role Phone Malika March MD Primary Care Provider [phone] Reason for Visit * Reason Comments Med Refill Encounter Details Date Type Department Care Team ([facility] Contact Info) Description 03/16/2021 Refill [facility] [place] [address] [place] [address] Lucero Sofia MD [address] [place] [address] Excessive and frequent menstruation Social History Tobacco [...] menstruation documented in this encounter Care Teams Assistant Principal Relationship Specialty Start Date End Date Malika March MD [address] [place] [address] PCP - General Pediatrics 09/08/20 04/17/23 documented as of this encounter
--- OUTSIDE RECORDS SUMMARY | 2024-12-26 11:18 | XMS_ITS | Encounter Summary ---
Author Organization [facility] Address [address] [place] [address] Phone Care Team Providers Care Music Grapher Name Role Phone Malika March MD Primary Care Provider [phone] Reason for Visit * Reason Comments Med Refill Encounter Details Date Type Department Care Team ([facility] Contact Info) Description 09/21/2019 Refill [facility] [place] [address] [place] [address] Jaclyn Lazcano DO [address] [place] [address] Anxiety Social History Tobacco Use Types Packs/Day [...] unspecified documented in this encounter Care Teams Music Grapher Relationship Specialty Start Date End Date Malika March MD [address] [place] [address] PCP - General Pediatrics 09/08/20 04/17/23 documented as of this encounter
--- OUTSIDE RECORDS SUMMARY | 2024-12-26 11:18 | XMS_ITS | Clinical Summary ---
Author Organization [facility] Address [address] [place] [address] Phone Care Team Providers Care Health Lead Name Role Phone Unavailable Primary Care Provider [...] Was seen by Jossy Pizarro MD at [facility] [place] 11/15/18 for syncope and referred to cardiology [...] haven't really discovered etiology; will refer to [facility] neuro for consultation; could this be migraine variant? Advised to try these other suggestions in the meantime while await appointment Seasonal allergic rhinitis due to pollen 018 Overview (07/08/2018): Uses zyrtec seasonally Anxiety 12/19/2017 Overview (08/20/2019): Admitted [facility] 12/26 with palpitations, feeling anxious, episodes of [...] Type Department Care Team Description 11/06/2024 Telephone [facility] - [address] [address] Marlene Jiang MD Medical Records [...] of hip, No family history of *Sudden /[place] under 55, No family history of ADD/ADHD, [...] Completed 09/01/2020, 08/20/2019 Procedures * Due to [place] [employer] law, this organization might not be sharing sensitive test results. Procedure Name Priority Date/Time Associated Diagnosis Comments CHLAMYDIA AND GONORRHEA, AMPLIFIED Routine 09/15/2021 8:12 PM EST Special screening examination for chlamydial disease from Last 3 Months or Most Recently Relevant to Health Maintenance Results * Due to [place] [employer] law, this organization might not be sharing sensitive test results. * Chlamydia and Gonorrhoea, Amplified (09/15/2021 8:12 PM EST) Chlamydia Trachomatis, DNA Probe NEGATIVE (NEG) [facility] Comment: No Chlamydia Trachomatis RNA detected in this patient's sample ? (REFERENCE RANGE/NORMAL VALUE: NOT DETECTED) ? Note: This test uses home service advisor- mediated amplification method to detect rRNA from C. Trachomatis URINE GC AMP PROBE NEGATIVE (NEG) [facility] Comment: No Neisseria Gonorrhoeae RNA detected in this patient's sample ? (REFERENCE RANGE/NORMAL VALUE: NOT DETECTED) ? NOTE: This test uses home service advisor-mediated amplification method to detect rRNA from N.Gonorrhoeae. [...] without risk of sexual abuse. Consult the [facility] if needed. Contact phone number . Therapeutic failure or success cannot be determined with the Aptima Combo2 assay since nucleic acid may persist following appropriate antimicrobial therapy. The Centers for Disease Control and Prevention (CDC) recommends confirmatory retesting using culture or a different nucleic acid amplification test when positive results occur, if indicated. Testing performed or reported by [facility], a Service of [facility], [address] [place] [address] [place] [address] Golden Russell MD, Racing Secretary And Handicapper [facility]# [id number] Urine 09/15/2021 8:12 PM EST 09/15/2021 8:13 PM EST Malika March MD LAB MICROBIOLOGY - GENERAL KIA VALLADARES Final Result [facility] from Last 3 Months or Most Recently Relevant to Health Maintenance
--- OUTSIDE RECORDS SUMMARY | 2024-12-26 11:18 | XMS_ITS | Encounter Summary ---
Author Organization [facility] Address [address] [place] [address] Phone Care Team Providers Care Psychologist Educational Name Role Phone Malika March MD Primary Care Provider [phone] Reason for Visit * Reason Comments Med Refill Encounter Details Date Type Department Care Team ([facility] Contact Info) Description 12/31/2019 Refill [facility] [place] [address] [place] [address] Jeb Otriz MD [address] [place] [address] Anxiety Social History Tobacco Use Types Packs/Day [...] unspecified documented in this encounter Care Teams Psychologist Educational Relationship Specialty Start Date End Date Malika March MD [address] [place] [address] PCP - General Pediatrics 09/08/20 04/17/23 documented as of this encounter
--- OUTSIDE RECORDS SUMMARY | 2024-12-26 11:18 | XMS_ITS | Encounter Summary ---
Author Organization [facility] Address [address] [place] [address] Phone Care Team Providers Care [place] Police Lieutenant Name Role Phone Malika March MD Primary Care Provider [phone] Encounter Details Date Type Department Care Team ([facility] Contact Info) Description 12/11/2016 Documentation [facility] [place] [address] [place] [address] Family Medicine, Physician [address] [place], [place] [address] Social History Tobacco Use Types Packs/Day Years [...] on filedocumented in this encounter Care Teams [place] [employer] Lieutenant Relationship Specialty Start Date End Date Malika March MD [address] [place] [address] PCP - General Pediatrics 09/08/20 04/17/23 documented as of this encounter
--- OUTSIDE RECORDS SUMMARY | 2024-12-26 11:18 | XMS_ITS | Encounter Summary ---
Author Organization [facility] Address [address] [place] [address] Phone Care Team Providers Care Italian Lecturer Name Role Phone Malika March MD Primary Care Provider [phone] Encounter Details Date Type Department Care Team ([facility] Contact Info) Description 04/26/2017 Conversion Encounter [facility] [address] [place] [address] Social History Tobacco Use Types Packs/Day Years [...] on filedocumented in this encounter Care Teams Italian Lecturer Relationship Specialty Start Date End Date Malika March MD [address] [place] [address] PCP - General Pediatrics 09/08/20 04/17/23 documented as of this encounter
--- NOTE | 2024-12-26 15:57 | A.OFFPC_ITS ---
Vital Signs 12/26/24 16:17 Height 5 ft 5 in Weight 237 lb BMI 39.4 Intake Visit Reasons: telehealth follow up Allergies No Known Allergies [No Known Allergies*] Allergy (Verified 12/26/24 15:58) Medication List - Last Reconciled 12/26/24 by Yanira Perez, [facility]- albuterol sulfate 2.5 mg (3 mL) inhalation Q4-6H PRN albuterol sulfate 90 mcg/actuation 2 puffs inhalation Q4-6H PRN 30 days buspirone 15 mg PO DAILY cetirizine (All Day Allergy (cetirizine)) 10 mg PO DAILY clonazepam 0.25 mg PO BID PRN clonazepam 1 mg PO BID PRN compressor, for nebulizer As directed escitalopram oxalate 20 mg PO DAILY meloxicam 15 mg PO DAILY metformin ER 500 mg PO QPM methylphenidate HCl (Ritalin) 20 mg PO BID nebulizer accessories (Adult Aerosol Mask) As directed norethindrone-ethin estradiol 0.5-35 mg-mcg (Necon) 1 tab PO DAILY propranolol 20 mg PO BID Tobacco use date assessed: 11/07/24 Dental Screening Dental Screen Date: 11/07/24 HPI HPI Comments History of Present Illness Details History of Present Illness - The patient is a 24-year-old female pr esenting for follow-up on weight management and adjustment of metformin dosage. - Since commencement of metformin & macr o counting weight has steadily declined from 240 to 237 pounds, a reduction achieved through controlled diet and medication. - The patient maintains a diet with 2000 calories, utilizing a macrocalculator to balance proteins, carbohydrates, and fats. Dropping to 1800 during deficit, which she has completed x 1, dropped wt to 237 after this. Next deficit May. - Initial difficulty in protein consumpt ion has diminished, with reported improved energy levels. - Her low-carbohydrate diet prompts the need for fiber supplementation - Contemplation of increasing metformin to 750 or 1000 mg arises from compliance to current regimen, and the desire for supportive weight management. Macro Plan 150-180 lbs x 12 = 1800- 2100 cals/day Deficit 7939-9381 Protein 180-200 g/day Carbs 130-150 g/day Fats 46-66 g/day Assessment and Plan 1. Obesity The patient maintains a steady weight loss through controlled diet and increased physical activity. Increase metformin from 500mg to 1000 mg to support this effort. Fiber supplements are suggested to enhance the low-carb diet's digestive benefits. with options such as Benefiber or psyllium husk considered for better digestion. 2. Lifestyle and dietary management The patient manages a caloric deficit effectively and logs dietary intake through a macrocalculator. Difficulty in protein intake has improved, increasing her energy levels. Continued dietary adjustments include fiber supplementation to ensure digestive health. Ongoing adherence to dietary logging is encouraged. 3. Use of Metformin Patient explored dosage adjustment possibilities, continuing two tablets daily with potential adjustment from 500 mg to 1000 mg. This decision is made to augment her weight management strategy, with continued adherence to dietary changes and monitoring in place. - Encourage continuation of current exer cise and revised dietary plan to support weight management goal. - Instruct monitoring of progress using fitting of clothes rather than daily weight checks to alleviate weight fluctuation concerns. - Schedule follow-up in 8-12 weeks to re view progress and adjust the therapeutic plan as necessary. Message sent to front office to arrange. Telehealth Attestation The patient was seen and evaluated via a telehealth platform. Documentation is accurate and reflective of the discussion during this visit. The patient has been explained that this is an interactive (audio/video) telehealth encounter and what that consists of. The patient understands and wishes to proceed. Gist platform was used. Total time spent caring for the patient today was 15 minutes. This includes time spent before the visit reviewing the chart, time spent during the visit, and time spent after the visit on documentation, reviewing laboratory results, [facility], medications, performing a medically necessary evaluation, counseling on diagnoses, care coordination, ordering appropriate tests, ordering appropriate medications, review of tests performed by other providers, reporting test results with the patient, communication with other healthcare provider [facility] Medical History Depression Anxiety Asthma Surgical History No pertinent past surgical history Family History Mother Asthma Father Psychiatric disorder Substance use disorder Maternal Grandmother Diabetes High cholesterol Paternal Grandmother High cholesterol Maternal Grandfather High cholesterol Cardiovascular disease Paternal Grandfather High cholesterol Psychiatric disorder Substance use disorder Sister Psychiatric disorder Social History (Updated 11/02/23 @ 11:11 by July Melendez [facility]) Household Members: Significant Other Housing: House Are you a primary care attendant to a significant other at home: No Do you presently have visiting nurse or other home services: No 75 years or older and lives alone: No Alcohol intake: current Alcohol intake frequency: holidays/special occasions only Patient Tobacco Use Status: Never used Tobacco e-Cigarette/Vaping Use: Never Used Second Hand Smoke Exposure: No service: No Current occupational status: employed Current occupation: [employer] Current occupational exposures/hazards: No Sexual orientation: Straight/Heterosexual Gender identity: Female Cognitive needs: No Hearing needs: No Vision needs: No Questionnaire Thrive Questionnaire Date Thrive assessed: 11/07/24 WILMAR-7 AMB Questionnaire WILMAR-7 Date WILMAR - 7 assessed: 09/24/24 Source: Developed by Drs. Chago Vicente, Mi Avalos, Awais Toledo and colleagues, with an educational magdi from [employer]. Physical exam (Primary Care) Tobacco/Smoking Status: Tobacco use Status Tobacco use date assessed 11/07/24 12/26/24 15:58 Patient Tobacco Use Status Never used Tobacco 12/26/24 15:58 e-Cigarette/Vaping Use Never Used 12/26/24 15:58 Thrive Assessment: Date of Thrive Assessment Date Thrive assessed 11/07/24 12/26/24 15:58 Telehealth Telehealth Telehealth Platform: [facility] Location of provider rendering services: practice address Location of patient: address on file Patient Identification confirmed using: Name, : Yes Telehealth method: voice only Patient verbally consented to treatment: Yes Patient verbally consented to billing insurance company: Yes Patient informed of any privacy concerns related to visit: Yes Minutes spent on Phone/Video with Pt.: 10 Coding Level of Care Code Tele Est Pt Level 2 (48783) Complex EM visit Add On G2211 Diagnoses Morbid obesity with BMI of 40.0-44.9, adult E66.01; Z68.41 Assessment & Plan Assessment & Plan (1) Morbid obesity with BMI of 40.0-44.9, adult: Comment: negative endo workup I have encouraged her to continue her efforts at eating a clean diet and exercising 5 times per week. Code(s): E66.01 - Morbid (severe) obesity due to excess calories; Z68.41 - Body mass index [BMI] 40.0-44.9, adult Category: Medical Plan . Medications: Changed From metformin ER 500 mg PO QPM 90 tabs 0RF To metformin ER 1,000 mg (2 x 500 mg) PO QPM 90 tabs 0RF
[2024-12-26 16:17] VITALS: BMI 39.4
== END 2024-12-26 16:28 | disposition home or self-care (01) ==
LOC: HO.HMCFM 10:23
PROVIDERS: PCP Nurse Practitioner Family; Visit Provider Nurse Practitioner Family
DX: E66.01 Morbid (severe) obesity due to excess calories (principal); Z68.41 Body mass index [BMI] 40.0-44.9, adult

== ENCOUNTER → 2024-12-26 10:23 | Outpatient (BNVA) | payer OTHER, SELFPAY | PROVIDERS: PCP Nurse Practitioner Family; Visit Provider Nurse Practitioner Family ==